=== PATIENT | female | born 1990 | race Caucasian/White ===

== ENCOUNTER 2018-09-24 02:20 | Inpatient (IN) ==
[2018-09-24] MEDS ORDERED: OXYTOCIN 30 UNITS/500 ML BAG IV PRN ×4 (03:30→21:06)
[2018-09-24] MEDS ORDERED: LACTATED RINGER'S 1,000 ML IV PRN ×3 (03:30→16:18)
[2018-09-24] MEDS ORDERED: BUTORPHANOL TARTRATE 2 MG/ML VIAL IV PRN (03:31)
[2018-09-24] MEDS: LACTATED RINGER'S 1,000 ML IV SCH ×3 (03:58→16:11)
[2018-09-24 04:00] LABS: Hematocrit (blood only) 36.3 % (37-47); Hemoglobin 12.6 g/dL (12.0-16.0); Mean Corpuscular Volume 79.1 fL (80-100); Mean Platelet Volume 9.4 fL (7.4-10.4); Platelet Count 243 K/uL (130-400); RDW Coefficient of Variation 15.4 % (11.5-14.5); RDW Standard Deviation 44.2 fL (36.4-46.3); Red Blood Count 4.59 M/uL (4.2-5.4); White Blood Count 12.73 K/uL (4.8-10.8)
[2018-09-24 04:01] LABS: Mean Corpuscular Hgb Conc 34.7 g/dL (32-36)
--- NOTE | 2018-09-24 06:35 | Obstetrical Progress Note ---
Date of Service Cx 3-4. EFW 7-8 Start Pitocin September 24, 2018 Results & Data Vital Signs (Past 12 Hours) Vital Signs Temp Pulse Resp BP 09/24/18 02:56 104 H 139/82 09/24/18 02:55 97.9 F 24 09/24/18 02:49 97.9 F 104 H 24 139/82
--- NOTE | 2018-09-24 08:22 | Anesthesiology Consultation ---
Date of Service September 24, 2018 Assessment & Plan Chart Review Chart Review: Patient NOT seen in Pre Admission Testing and Acceptable Risk for Labor Epidural Consults Requested none ASA ASA2 Proposed Anesthesia Anesthesia Type: Labor Epidural Risk / Benefits Reviewed With: PT / POA / Parent / Guardian, Accepts Plan and Informed Consent Obtained History Height/Weight Height: 1.63 m Weight: 113 kg Allergies Allergy/AdvReac Type Severity Reaction Status Date / Time latex Allergy Mild Rash Verified 09/23/18 20:06 Medications Home Medications Medication Instructions Recorded Confirmed Last Taken Vitamin 1 tab PO DAILY 09/23/18 09/24/18 09/23/18 23:00 1 Vitamin B-6 1 tab PO DAILY 09/23/18 09/24/18 09/23/18 23:30 Active Medications Generic Name Dose Route Start Last Admin Trade Name Freq PRN Reason Stop Dose Admin Lactated Ringer's 1,000 mls @ 125 mls/hr 09/24/18 03:30 09/24/18 08:00 Lr IV 09/26/18 03:29 125 mls/hr .Q8H ELLA Infusion Oxytocin 30 units in 500 mls @ 1 mls/hr 09/24/18 06:34 09/24/18 08:07 Pitocin IV 09/26/18 06:33 0.06 units/hr .Q24H PRN 1 mls/hr Labor Induction/Augmentation Administration Protocol 0.06 UNITS/HR NPO Date Last Intake of Fluids: 09/24/18 Time Last Intake of Fluids: 08:00 Date Last Intake of Solids: 09/23/18 Time Last Intake of Solids: 23:00 Past Medical History Medical History Anxiety and depression stopped taking Prozac GERD (gastroesophageal reflux disease) Mild heartburn 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 Exercise / Class Metabolic Activity II 4-5 Yardwork/Stairs/Walk up hill Past Surgical History Denies previous surgical history Past Anesthesia History No Family Hx of Anesthesia Complications Denies previous anesthesia history History of PONV No Hx of PONV (No h/o previous anesthesia) and Hx of Motion Sickness (On occasion) Social History Smoking Status: Never smoker Do You Dip or Chew Tobacco: No Hx Alcohol Use: Yes alcohol intake frequency: holidays/special occasions only (Not during ) Hx Substance Use: No Review of Systems Hematologic / Lymphatic: no easy bleeding Denies having h/o major bleeding disorder Denies taking any anticoagulant Physical Exam Vital Signs Last Vital Signs Temp 36.8 C 09/24/18 07:04 Pulse 110 H 09/24/18 08:04 Resp 20 09/24/18 08:03 BP 143/87 H 09/24/18 08:04 ENMT Mouth: no TMJ abnormality and no TMJ clicking Thyromental Distance: > or= 3.5 Finger Breadths Mallampati Class: II Mouth / Teeth: 1. Chipped Neck normal visual inspection; neck extension not limited Respiratory Auscultation: lungs clear to auscultation bilaterally Cardiovascular Rate/Rhythm: regular rate and regular rhythm Psychiatric Orientation: alert and oriented x 3 Testing Laboratory Results 09/24/18 03:49
--- NOTE | 2018-09-24 09:18 | Labor Progress Brief Note ---
Date of Service September 24, 2018 Subjective Patient feeling contractions, does not wish epidural yet. Assessment & Plan (1) Post term over 40 weeks: IOL continues, s/p Ellis and now with pitocin. Plan re-attempt AROM after patient elects epidural, or in several hours. GBS neg. Rh pos. Labs and vitals reviewed. Physical Exam Physical Exam: T Cat 1 [place] irregular Pit @ 3 Cvx 3/50/-2 well applied, vtx palpable. Attempt to AROM but without obvious success / LOF. Patient having difficulty tolerating exam due to discomfort, pulling legs together. Results & Data Vital Signs (Past 12 Hours) Vital Signs Temp Pulse Resp BP 09/24/18 09:11 98 H 141/84 H 09/24/18 08:24 36.8 C 20 09/24/18 08:04 110 H 143/87 H 09/24/18 08:03 20 09/24/18 07:05 101 H 131/84 09/24/18 07:04 36.8 C 09/24/18 06:41 36.8 C 108 H 24 122/74 09/24/18 02:56 104 H 139/82 09/24/18 02:55 36.6 C 24 09/24/18 02:49 36.6 C 104 H 24 139/82 Laboratory Results Laboratory Results - last 24 hr 09/24/18 03:49 WBC 12.73 H RBC 4.59 Hgb 12.6 Hct 36.3 L MCV 79.1 L MCH 27.5 MCHC 34.7 RDW Std Deviation 44.2 RDW Coeff of Brian 15.4 H Plt Count 243 MPV 9.4
--- NOTE | 2018-09-24 12:00 | Labor Progress Brief Note ---
Date of Service September 24, 2018 Subjective Care discussed with Abe Muñoz RN. Patient tolerating ctx, does not want epidural yet. Nichelle also tells me she thinks fluid is actually clear, not light mec as previously suspected. Assessment & Plan (1) Post term over 40 weeks: Continue to titrate pitocin to Q2min ctx. Epidural on request. AROM appears to have been successful earlier this morning, or else followed by SROM sometime after. In any case pt now ruptured and fluid clear per RN. Will reassess cervix in a few hours or after epidural. Physical Exam Physical Exam: FHT Cat 1 [place] Q3min Pit @ 11 Results & Data Vital Signs (Past 12 Hours) Vital Signs Temp Pulse Resp BP 09/24/18 11:30 37.0 C 09/24/18 11:10 108 H 145/90 H 09/24/18 10:11 110 H 20 128/63 09/24/18 09:11 98 H 20 141/84 H 09/24/18 08:24 36.8 C 20 09/24/18 08:04 110 H 20 143/87 H 09/24/18 08:03 20 09/24/18 07:05 101 H 20 131/84 09/24/18 07:04 36.8 C 20 09/24/18 06:41 36.8 C 108 H 24 122/74 09/24/18 02:56 104 H 139/82 09/24/18 02:55 36.6 C 24 09/24/18 02:49 36.6 C 104 H 24 139/82
--- NOTE | 2018-09-24 15:20 | Labor Progress Brief Note ---
Date of Service September 24, 2018 Subjective Patient on birthing ball when I entered room. Able to reposition herself into bed for exam. Assessment & Plan (1) Post term over 40 weeks: Induction to continue. Pit @ Q2min and patient uncomfortable, but no cervical change. Discussed options with patient and family. Agreeable to placement of IUPC and FSE. Both placed without difficulty. Tracing of FHR became category 2; repositioning, bolus, and checking FHR with external monitor all tried. Appears to have truly developed some late decels at first but these did resolve back to a baseline of 135 with semi-marin position and FSE is working accurately. Fluid definitely light meconium stained at this point. Patient now requesting epidural, will give after bolus complete. Then titrate pitocin to MVU 200. Present on Admission?: Yes Physical Exam Physical Exam: FHT Cat 1 [place] Q2q Pit @ 19 Cvx unchanged Results & Data Vital Signs (Past 12 Hours) Vital Signs Temp Pulse Resp BP 09/24/18 15:10 108 H 125/72 09/24/18 14:18 114 H 164/78 H 09/24/18 14:17 109 H 180/84 H 09/24/18 13:30 36.8 C 09/24/18 13:10 104 H 141/81 H 09/24/18 12:10 106 H 20 139/79 09/24/18 11:30 37.0 C 09/24/18 11:10 108 H 18 145/90 H 09/24/18 10:11 110 H 20 128/63 09/24/18 09:11 98 H 20 141/84 H 09/24/18 08:24 36.8 C 20 09/24/18 08:04 110 H 20 143/87 H 09/24/18 08:03 20 09/24/18 07:05 101 H 20 131/84 09/24/18 07:04 36.8 C 20 09/24/18 06:41 36.8 C 108 H 24 122/74
[2018-09-24] MEDS ORDERED: BUPIVACAINE 0.25% 30 ML VIAL ONE (15:31)
[2018-09-24] MEDS ORDERED: fentaNYL citrate 100 MCG/2 ML VIAL ONE ×2 (15:31→19:24)
[2018-09-24] MEDS ORDERED: ePHEDrine sulfate 50 MG/ML AMP ONE ×2 (15:31→20:25)
[2018-09-24] MEDS ORDERED: fentaNYL 2MCG/ML ROPIV 1.25MG/ML 100 ML BAG EPI ONE (15:32)
--- NOTE | 2018-09-24 16:12 | Labor Progress Brief Note ---
Date of Service September 24, 2018 Subjective Getting comfortable, just received epidural. Assessment & Plan (1) Post term over 40 weeks: Titrate to 200-250 MVU, reassess cervix after adequate for at least 2 hours. Occasional variables likely d/t epidural just received; continue observation. Reassuring variability and accels present. Present on Admission?: Yes Physical Exam Physical Exam: Pit @ 19 [place] Q2 FHT with baseline 140, +acc, + occ variables, mod yonny. Cvx deferred Results & Data Vital Signs (Past 12 Hours) Vital Signs Temp Pulse Resp BP Pulse Ox 09/24/18 16:09 126 H 110/69 09/24/18 16:08 129 H 99 09/24/18 16:03 118 H 99 09/24/18 15:58 113 H 100 09/24/18 15:53 120 H 100 09/24/18 15:10 108 H 125/72 09/24/18 14:18 114 H 164/78 H 09/24/18 14:17 109 H 180/84 H 09/24/18 13:30 36.8 C 09/24/18 13:10 104 H 141/81 H 09/24/18 12:10 106 H 20 139/79 09/24/18 11:30 37.0 C 09/24/18 11:10 108 H 18 145/90 H 09/24/18 10:11 110 H 20 128/63 09/24/18 09:11 98 H 20 141/84 H 09/24/18 08:24 36.8 C 20 09/24/18 08:04 110 H 20 143/87 H 09/24/18 08:03 20 09/24/18 07:05 101 H 20 131/84 09/24/18 07:04 36.8 C 20 09/24/18 06:41 36.8 C 108 H 24 122/74
[2018-09-24] MEDS ORDERED: NALBUPHINE HCL INJ 10 MG/ML AMP IV PRN ×2 (16:18→20:40)
[2018-09-24] MEDS ORDERED: ONDANSETRON INJ 2 MG/ML 2 ML VIAL IV PRN ×3 (16:18→20:40)
[2018-09-24] MEDS ORDERED: DiphenhydrAMINE HCL 50 MG/ML VIAL IV PRN ×2 (16:18→20:40)
[2018-09-24] MEDS ORDERED: PROMETHAZINE HCL 12.5 MG in SODIUM CHLORIDE 0.9% 50 ML IV PRN ×3 (16:18→20:40)
[2018-09-24] MEDS ORDERED: NALOXONE HCL 1 MG in SODIUM CHLORIDE 0.9% 1000ML 1,000 ML IV PRN ×2 (16:18→20:40)
[2018-09-24] MEDS ORDERED: fentaNYL 2MCG/ML ROPIV 1.25MG/ML 100 ML BAG EPI PRN (16:18)
[2018-09-24] MEDS ORDERED: ePHEDrine sulfate 50 MG/ML AMP IV PRN ×3 (16:18→20:40)
[2018-09-24] MEDS ORDERED: NALOXONE HCL 0.4 MG/1 ML VIAL/CARP IV PRN ×2 (16:18→20:40)
--- NOTE | 2018-09-24 17:14 | Labor Progress Brief Note ---
Date of Service September 24, 2018 Subjective Came to see patient with intent of checking cervix; however, per RN in room, patient only just now had pitocin increased to 21. Not likely to be any cervical change as MVU not yet adequate, so exam deferred. Patient is now comfortable with epidural. Assessment & Plan (1) Post term over 40 weeks: Titrate to adequate MVU then reassess for cervical change. status currently reassuring. Present on Admission?: Yes Physical Exam Physical Exam: FHT Cat 1 [place] Q1.5-2 MVU 160-190 per RN calculations Results & Data Vital Signs (Past 12 Hours) Vital Signs Temp Pulse Resp BP Pulse Ox 09/24/18 17:08 113 H 100 09/24/18 17:06 111 H 129/63 09/24/18 17:03 113 H 100 09/24/18 17:01 118 H 138/65 09/24/18 16:58 111 H 100 09/24/18 16:57 108 H 137/64 09/24/18 16:53 110 H 100 09/24/18 16:52 110 H 132/60 09/24/18 16:48 109 H 99 09/24/18 16:46 115 H 136/61 09/24/18 16:43 108 H 99 09/24/18 16:41 113 H 136/66 09/24/18 16:38 106 H 100 09/24/18 16:36 113 H 134/68 09/24/18 16:33 114 H 100 09/24/18 16:32 113 H 136/67 09/24/18 16:28 118 H 100 09/24/18 16:26 116 H 137/65 09/24/18 16:23 120 H 99 09/24/18 16:20 122 H 141/67 H 09/24/18 16:18 113 H 127/66 100 09/24/18 16:16 117 H 118/67 09/24/18 16:14 116 H 113/67 09/24/18 16:13 119 H 99 09/24/18 16:12 114 H 108/63 09/24/18 16:10 126 H 102/64 09/24/18 16:09 126 H 110/69 09/24/18 16:08 129 H 99 09/24/18 16:03 118 H 99 09/24/18 15:58 113 H 100 05/07/19 15:53 120 H 100 09/24/18 15:10 108 H 125/72 09/24/18 14:18 114 H 164/78 H 09/24/18 14:17 109 H 180/84 H 09/24/18 13:30 36.8 C 09/24/18 13:10 104 H 141/81 H 09/24/18 12:10 106 H 20 139/79 09/24/18 11:30 37.0 C 09/24/18 11:10 108 H 18 145/90 H 09/24/18 10:11 110 H 20 128/63 09/24/18 09:11 98 H 20 141/84 H 09/24/18 08:24 36.8 C 20 09/24/18 08:04 110 H 20 143/87 H 09/24/18 08:03 20 09/24/18 07:05 101 H 20 131/84 09/24/18 07:04 36.8 C 20 09/24/18 06:41 36.8 C 108 H 24 122/74
--- NOTE | 2018-09-24 19:21 | Labor Progress Brief Note ---
Date of Service September 24, 2018 Subjective Comfortable with epidural. Assessment & Plan (1) Post term over 40 weeks: Discussed with patient my concerns for CPD. She has a total lack of progress despite induction process nearly 24 hours now, including about 12 hours of pitocin reaching significant doses and reaching adequate MVU for past hour. Her contraction pattern is deteriorating into couplets and groups. FHT have been intermittently Cat 2, with meconium, and I lack confidence that the lengthy process yet to come will be well tolerated by the fetus. Although I do not feel we have to abandon attempt to induce at this time, I have discussed with the patient the risks and benefits both of continuing IOL and of changing to C/Section. The patient feels she would prefer to proceed to at this time rather than continue to attempt induction. Consent process done. Present on Admission?: Yes Physical Exam Physical Exam: FHT Cat 2 with mod yonny, accels, normal baseline, occasional variables. [place] Q1-6 with dysfunctional pattern Pit @ 23 MVU adequate Cvx unchanged; still 3cm/50/-2 Results & Data Vital Signs (Past 12 Hours) Vital Signs Temp Pulse Resp BP Pulse Ox 09/24/18 19:13 132 H 100 09/24/18 19:08 129 H 171/96 H 100 09/24/18 19:03 119 H 97 09/24/18 18:58 119 H 100 09/24/18 18:53 121 H 127/74 93 09/24/18 18:48 112 H 100 09/24/18 18:43 111 H 100 09/24/18 18:38 36.9 C 111 H 20 100 09/24/18 18:37 114 H 177/82 H 09/24/18 18:33 112 H 99 09/24/18 18:28 99 H 99 09/24/18 18:23 107 H 144/79 H 99 09/24/18 18:18 99 H 20 99 09/24/18 18:13 98 H 99 09/24/18 18:08 106 H 99 09/24/18 18:07 113 H 149/83 H 09/24/18 18:03 97 H 98 09/24/18 17:58 108 H 98 09/24/18 17:54 108 H 139/81 09/24/18 17:53 110 H 99 09/24/18 17:48 108 H 100 09/24/18 17:45 36.9 C 20 09/24/18 17:43 106 H 99 05 17:38 109 H 100 05 17:37 109 H 134/60 09/24/18 17:33 105 H 100 09/24/18 17:28 108 H 100 09/24/18 17:23 112 H 136/64 99 09/24/18 17:18 114 H 100 05 17:13 114 H 20 100 09/24/18 17:08 113 H 100 09/24/18 17:06 111 H 129/63 09/24/18 17:03 113 H 100 09/24/18 17:01 118 H 138/65 09/24/18 16:58 111 H 100 09/24/18 16:57 108 H 20 137/64 09/24/18 16:53 110 H 100 09/24/18 16:52 110 H 132/60 09/24/18 16:48 109 H 99 09/24/18 16:46 115 H 136/61 09/24/18 16:43 108 H 99 09/24/18 16:41 113 H 20 136/66 09/24/18 16:38 106 H 100 09/24/18 16:36 113 H 134/68 09/24/18 16:33 114 H 100 09/24/18 16:32 113 H 136/67 09/24/18 16:28 118 H 100 09/24/18 16:26 116 H 20 137/65 09/24/18 16:23 120 H 99 09/24/18 16:20 122 H 141/67 H 09/24/18 16:18 113 H 127/66 100 09/24/18 16:16 117 H 118/67 09/24/18 16:14 116 H 113/67 09/24/18 16:13 119 H 99 09/24/18 16:12 114 H 108/63 09/24/18 16:10 126 H 102/64 09/24/18 16:09 126 H 20 110/69 09/24/18 16:08 129 H 99 09/24/18 16:03 118 H 99 09/24/18 15:58 113 H 100 05 15:53 120 H 100 09/24/18 15:20 36.9 C 20 09/24/18 15:10 108 H 125/72 09/24/18 14:18 114 H 164/78 H 09/24/18 14:17 109 H 180/84 H 09/24/18 13:30 36.8 C 09/24/18 13:10 104 H 141/81 H 09/24/18 12:10 106 H 20 139/79 09/24/18 11:30 37.0 C 09/24/18 11:10 108 H 18 145/90 H 09/24/18 10:11 110 H 20 128/63 09/24/18 09:11 98 H 20 141/84 H 09/24/18 08:24 36.8 C 20 09/24/18 08:04 110 H 20 143/87 H 09/24/18 08:03 20
[2018-09-24] MEDS ORDERED: OXYTOCIN 10 UNITS/ML VIAL ONE ×3 (19:25)
[2018-09-24] MEDS ORDERED: MoRPHine SULFATE PF 1 MG/ML 10 ML AMP/VIAL ONE (19:25)
[2018-09-24] MEDS ORDERED: CEFAZOLIN 3000MG 65 ML IV SCH (19:30)
[2018-09-24] MEDS ORDERED: ATROPINE SULFATE 0.1 MG/ML 10ML SYR IV PRN (19:30)
[2018-09-24] MEDS ORDERED: HYDROmorphone INJ 1 MG/ML SYRINGE IV PRN (19:30)
[2018-09-24] MEDS ORDERED: fentaNYL citrate 100 MCG/2 ML VIAL IV PRN (19:30)
[2018-09-24] MEDS ORDERED: CITRIC ACID/SODIUM CITRATE 15 ML UDC PO SCH (19:30)
--- NOTE | 2018-09-24 19:36 | Anesthesiology Consultation ---
Date of Service September 24, 2018 Assessment & Plan Chart Review Chart Review: Acceptable Risk for Surgery and Patient NOT seen in Pre Admission Testing Consults Requested none ASA [id number] Proposed Anesthesia Anesthesia Type: MAC Epidural Risk / Benefits Reviewed With: PT / POA / Parent / Guardian, Accepts Plan and Informed Consent Obtained History Height/Weight Height: 1.63 m Weight: 113 kg Allergies Allergy/AdvReac Type Severity Reaction Status Date / Time latex Allergy Mild Rash Verified 09/23/18 20:06 Medications Home Medications Medication Instructions Recorded Confirmed Last Taken Vitamin 1 tab PO DAILY 09/23/18 09/24/18 09/23/18 23:00 1 Vitamin B-6 1 tab PO DAILY 09/23/18 09/24/18 09/23/18 23:30 Active Medications Generic Name Dose Route Start Last Admin Trade Name Freq PRN Reason Stop Dose Admin Lactated Ringer's 1,000 mls @ 125 mls/hr 09/24/18 03:30 09/24/18 18:34 Lr IV 09/26/18 03:29 125 mls/hr .Q8H ELLA Infusion Oxytocin 30 units in 500 mls @ 25 mls/hr 09/24/18 16:14 09/24/18 18:40 Pitocin IV 10/24/18 16:13 1.5 units/hr .Q20H PRN 25 mls/hr Labor induction Titration Protocol 1.5 UNITS/HR Ropivacaine 100 ml 09/24/18 16:18 09/24/18 19:08 Epidural (L&D) EPI 09/25/18 16:17 10 ml PRN PRN Administration Pain R/T Labor Protocol NPO Date Last Intake of Fluids: 09/24/18 Time Last Intake of Fluids: 02:00 Date Last Intake of Solids: 09/23/18 Time Last Intake of Solids: 23:00 Past Medical History Medical History Anxiety and depression stopped taking Prozac GERD (gastroesophageal reflux disease) Mild heartburn 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 Exercise / Class Metabolic Activity II 4-5 Yardwork/Stairs/Walk up hill Past Anesthesia History No Hx of Anesthesia Complications and No Family Hx of Anesthesia Complications Denies previous anesthesia history History of PONV No Hx of PONV and Hx of Motion Sickness (On occasion) Social History Smoking Status: Never smoker Do You Dip or Chew Tobacco: No Hx Alcohol Use: Yes alcohol intake frequency: holidays/special occasions only (Not during ) Hx Substance Use: No Review of Systems Respiratory: no dyspnea Cardiovascular: no chest pain Gastrointestinal: no nausea and no vomiting Physical Exam Vital Signs Last Vital Signs Temp 36.9 C 09/24/18 18:38 Pulse 134 H 09/24/18 19:28 Resp 20 09/24/18 18:38 BP 152/96 H 09/24/18 19:23 Pulse Ox 100 09/24/18 19:28 ENMT Mouth: no TMJ abnormality and no TMJ clicking Thyromental Distance: > or= 3.5 Finger Breadths Mallampati Class: II Neck normal visual inspection; neck extension not limited Respiratory Auscultation: lungs clear to auscultation bilaterally Cardiovascular Rate/Rhythm: regular rate and regular rhythm Psychiatric Orientation: alert and oriented x 3 Testing Laboratory Results 09/24/18 03:49
[2018-09-24] MEDS ORDERED: ONDANSETRON INJ 2 MG/ML 2 ML VIAL ONE (20:11)
[2018-09-24] MEDS ORDERED: CARBOPROST TROMETHAMINE 250 MCG/ML AMPUL ONE (20:32)
[2018-09-24] MEDS ORDERED: PHENYLEPHRINE HCL 10 MG/ML VIAL ONE (20:32)
[2018-09-24] MEDS ORDERED: LACTATED RINGER'S 500 ML IV PRN (20:40)
[2018-09-24] MEDS ORDERED: NALOXONE HCL 0.08 MG in SYRINGE 1.8 ML IV PRN (20:40)
[2018-09-24] MEDS ORDERED: MEPERIDINE HCL 25 MG/ML CARP IV PRN (20:40)
[2018-09-24] MEDS ORDERED: MoRPHine SULFATE 2 MG/ML CARP IV PRN (20:40)
[2018-09-24] MEDS ORDERED: MoRPHine SULFATE PF 1 MG/ML 10 ML AMP/VIAL EPI ONE (20:40)
[2018-09-24] MEDS ORDERED: SODIUM CHLORIDE 0.9% 1000ML 1,000 ML IV SCH (20:45)
[2018-09-24] MEDS ORDERED: NO NARCOTICS OR SEDATIVES SCH (20:45)
--- NOTE | 2018-09-24 20:55 | Operative Report ---
Post Operative Report Pre & Post Diagnosis Operation Date: 09/24/18 19:30 Pre-Op Diagnosis: 1.) SIUP @ Postdates 2.) Induction of labor 3.) Failure to progress 4.) Maternal obesity Post-Op Diagnosis: Same Procedure Operation Date: 09/24/18 19:30 Actual Procedures p Primary Section with a low transverse incision for the of a viable male child.(Bilateral) - Kathleen Amaya MD Surgeon Kathleen Amaya MD Director Of Scientific Research RN Estimated Blood Loss 800 Findings Consistent with Post-Op Diagnosis Specimens Cord blood, placenta exam Anesthesia Type L&D Only Epidural Exists Complications none Disposition Accompanied Patient To Recovery: Yes Disposition: L&D Description of Procedure The patient was brought to the operating room and placed on the table in the supine position with a leftward tilt, then prepped and draped in standard sterile fashion. A hard time out was taken prior to proceeding. A pfannensteil incision was created sharply and carried down to the fascia using bovie electrocautery. The fascia was nicked and then extended using rebollar scissors. The edges of the fascia were grasped with Low clamps and elevated, then sharply and bluntly dissected off the underlying rectus. The midline of the r ectus was identified and bluntly . The peritoneum was bluntly entered, and this entry was extended using pressure from the surgeon's hands. Attempt was made x2 to place an Jaya retractor, however it sprung out of the abdominal incision both times and was abandoned. The bladder retractor was placed and the lower uterine segment was examined and found to be well developed. A bladder f lap was created and the retractor was replaced behind this flap to protect the bladder. A transverse lower uterine incision was then created, with final entry to the uterine cavity made in a blunt manner with the surgeon's finger. Meconium stained amniotic fluid was encountered. The head was elevated to the incision and delivered using mild fundal pressure. The cord was doubly clamped and cut, respiratory effort was noted during cord clamping, then the infant was taken to the warmer for grocery store bagger care. The placenta was manually extracted, and the uterus was gently exteriorized from the maternal abdomen. The cavity was cleared of clot and debris using a dry lap sponge. Some stubborn pieces of meconium-stained membrane were removed via brief Papo curettage. The angles of the incision were identified with allis clamps, and the hysterotomy was then repaired in running locked fashion using 0-vicryl suture, followed by a second imbricating layer. The tubes and ovaries were examined and found to be normal bilaterally. The posterior gutter was irrigated and cleared of clot and debris. The uterus was then gently re-internalized to the abdomen. Lateral gutters were cleared of clot and debris using a damp lap sponge, and a final exam of the hysterotomy revealed good hemostasis. The rectus muscles were allowed to reapproximate naturally. The angle of the fascia was grasped with a Low clamp and the fascia was then repaired in running non-locked fashion with 1-vicryl suture. At the completion of repair, the fascia was examined and found to be free of any defect. The subcutaneous tissue was copiously irrigated and then reapproximated using 3-0 chromic in two layers. The skin was then closed using surgical nithya and a clean Telfa/ABD dressing was applied with medipore tape. The kc was noted to be draining clear yellow urine as the patient was transferred back to her recovery room. I attest to the content of the Intraoperative Record and any orders documented therein. Any exceptions are noted below.
[2018-09-24] MEDS ORDERED: MEASLES, MUMPS & RUBELLA VIRUS VIAL SQ ONE (21:04)
[2018-09-24] MEDS ORDERED: SENNA 8.6 MG TAB PO PRN (21:04)
[2018-09-24] MEDS ORDERED: BENZOCAINE 20% AER SPR 82.5 GM CAN EXT PRN (21:04)
[2018-09-24] MEDS ORDERED: HYDROCORTISONE ACETATE 25 MG SUPP PR PRN (21:04)
[2018-09-24] MEDS ORDERED: DIPHTHERIA/TETANUS/PERTUSSIS 0.5 ML SYR/VIAL IM ONE (21:04)
[2018-09-24] MEDS ORDERED: SUPERCREAM 0.870% 15 GM JAR EXT PRN (21:04)
[2018-09-24] MEDS ORDERED: LACTATED RINGER'S 1,000 ML IV SCH (21:04)
[2018-09-24] MEDS ORDERED: MAGNESIUM HYDROXIDE SUSP 30 ML UDC PO PRN (21:04)
[2018-09-24] MEDS ORDERED: OXYTOCIN 30 UNITS/500 ML BAG IV SCH (21:15)
--- NOTE | 2018-09-24 23:45 | Anesthesiology Progress Note ---
Date of Service September 24, 2018 Anesthesia Post Procedure Vital Signs Vital Signs: Temp Pulse Resp BP Pulse Ox 09/24/18 23:02 111 H 99 09/24/18 23:00 36.4 C L 110 H 20 142/77 H 09/24/18 22:57 108 H 97 09/24/18 22:52 111 H 97 09/24/18 22:47 106 H 99 09/24/18 22:42 109 H 99 09/24/18 22:37 107 H 99 09/24/18 22:32 103 H 100 09/24/18 22:31 108 H 145/70 H 09/24/18 22:30 106 H 18 99 09/24/18 22:27 103 H 99 09/24/18 22:22 107 H 99 09/24/18 22:17 106 H 99 09/24/18 22:12 104 H 98 09/24/18 22:07 105 H 99 09/24/18 22:02 109 H 98 09/24/18 22:00 106 H 20 136/63 09/24/18 21:57 108 H 98 09/24/18 21:52 113 H 98 09/24/18 21:51 111 H 130/83 09/24/18 21:50 18 09/24/18 21:47 109 H 98 09/24/18 21:42 112 H 97 09/24/18 21:40 107 H 18 119/56 L 09/24/18 21:37 105 H 96 09/24/18 21:32 108 H 97 09/24/18 21:30 109 H 16 116/53 L 09/24/18 21:27 112 H 98 09/24/18 21:22 109 H 97 09/24/18 21:20 110 H 18 113/57 L 09/24/18 21:17 108 H 97 09/24/18 21:12 103 H 98 09/24/18 21:11 105 H 18 119/57 L 09/24/18 21:10 16 09/24/18 21:07 110 H 98 09/24/18 21:03 107 H 94 09/24/18 21:02 107 H 96 09/24/18 21:00 37.2 C 18 09/24/18 20:58 110 H 16 131/58 L 94 09/24/18 20:57 108 H 94 09/24/18 19:48 128 H 147/84 H 100 09/24/18 19:47 133 H 174/94 H 09/24/18 19:43 132 H 100 09/24/18 19:38 131 H 158/94 H 99 09/24/18 19:33 132 H 99 09/24/18 19:28 134 H 100 09/24/18 19:23 136 H 152/96 H 100 09/24/18 19:18 130 H 100 09/24/18 19:13 132 H 100 09/24/18 19:08 129 H 171/96 H 100 09/24/18 19:03 119 H 97 09/24/18 19:00 37.0 C 20 09/24/18 18:58 119 H 100 09/24/18 18:53 121 H 127/74 93 09/24/18 18:48 112 H 100 09/24/18 18:43 111 H 100 09/24/18 18:38 36.9 C 111 H 20 100 09/24/18 18:37 114 H 177/82 H 09/24/18 18:33 112 H 99 09/24/18 18:28 99 H 99 09/24/18 18:23 107 H 144/79 H 99 09/24/18 18:18 99 H 20 99 09/24/18 18:13 98 H 99 09/24/18 18:08 106 H 99 09/24/18 18:07 113 H 149/83 H 09/24/18 18:03 97 H 98 09/24/18 17:58 108 H 98 09/24/18 17:54 108 H 139/81 09/24/18 17:53 110 H 99 09/24/18 17:48 108 H 100 09/24/18 17:45 36.9 C 20 09/24/18 17:43 106 H 99 09/24/18 17:38 109 H 100 09/24/18 17:37 109 H 134/60 09/24/18 17:33 105 H 100 09/24/18 17:28 108 H 100 09/24/18 17:23 112 H 136/64 99 09/24/18 17:18 114 H 100 09/24/18 17:13 114 H 20 100 09/24/18 17:08 113 H 100 09/24/18 17:06 111 H 129/63 09/24/18 17:03 113 H 100 09/24/18 17:01 118 H 138/65 09/24/18 16:58 111 H 100 09/24/18 16:57 108 H 20 137/64 09/24/18 16:53 110 H 100 09/24/18 16:52 110 H 132/60 09/24/18 16:48 109 H 99 09/24/18 16:46 115 H 136/61 09/24/18 16:43 108 H 99 09/24/18 16:41 113 H 20 136/66 09/24/18 16:38 106 H 100 09/24/18 16:36 113 H 134/68 09/24/18 16:33 114 H 100 09/24/18 16:32 113 H 136/67 09/24/18 16:28 118 H 100 09/24/18 16:26 116 H 20 137/65 09/24/18 16:23 120 H 99 09/24/18 16:20 122 H 141/67 H 09/24/18 16:18 113 H 127/66 100 09/24/18 16:16 117 H 118/67 09/24/18 16:14 116 H 113/67 09/24/18 16:13 119 H 99 09/24/18 16:12 114 H 108/63 09/24/18 16:10 126 H 102/64 09/24/18 16:09 126 H 20 110/69 09/24/18 16:08 129 H 99 09/24/18 16:03 118 H 99 09/24/18 15:58 113 H 100 09/24/18 15:53 120 H 100 09/24/18 15:20 36.9 C 20 09/24/18 15:10 108 H 125/72 09/24/18 14:18 114 H 164/78 H 09/24/18 14:17 109 H 180/84 H 09/24/18 13:30 36.8 C 09/24/18 13:10 104 H 141/81 H 09/24/18 12:10 106 H 20 139/79 09/24/18 11:30 37.0 C 09/24/18 11:10 108 H 18 145/90 H 09/24/18 10:11 110 H 20 128/63 09/24/18 09:11 98 H 20 141/84 H 05/07/19 08:24 36.8 C 20 09/24/18 08:04 110 H 20 143/87 H 09/24/18 08:03 20 09/24/18 07:05 101 H 20 131/84 09/24/18 07:04 36.8 C 20 09/24/18 06:41 36.8 C 108 H 24 122/74 09/24/18 02:56 104 H 139/82 09/24/18 02:55 36.6 C 24 09/24/18 02:49 36.6 C 104 H 24 139/82 Pain Intensity Bilateral Abdomen: Pain Intensity: 4 Transfer of Care Handoff Completed per policy Notes Mental Status: alert / awake / arousable Patient Amnestic to Procedure: Yes Nausea / Vomiting: adequately controlled Pain: adequately controlled Airway Patency, RR, SpO2: stable & adequate BP & HR: stable & adequate Neuraxial Anesthesia: was administered and sensory block is resolving Anesthetic Complications: no major complications apparent
[2018-09-24] MEDS: SIMETHICONE 80 MG CHEW PO SCH (23:49)
[2018-09-24] MEDS: DOCUSATE SODIUM 100 MG CAP PO SCH (23:49)
[2018-09-25] MEDS: KETOROLAC 30 MG/ML VIAL IV PRN ×2 (00:22→12:51)
[2018-09-25 07:11] LABS: Basophils # (auto) 0.01 K/uL (0-0.2); Basophils % (auto) 0.1 %; Hematocrit (blood only) 29.4 % (37-47); Hemoglobin 10.2 g/dL (12.0-16.0); Immature Granulocytes # (auto) 0.04 K/uL (0.00-0.02); Immature Granulocytes % (auto) 0.3 %; Lymphocytes # (auto) 1.77 K/uL (1.2-3.4); Lymphocytes % (auto) 14.1 %; Mean Corpuscular Hgb Conc 34.7 g/dL (32-36); Mean Corpuscular Volume 80.3 fL (80-100); Mean Platelet Volume 9.5 fL (7.4-10.4); Monocytes # (auto) 1.17 K/uL (0.11-0.59); Monocytes % (auto) 9.3 %; Neutrophils # (auto) 9.57 K/uL (1.4-6.5); Neutrophils % (auto) 76.2 %; Platelet Count 160 K/uL (130-400); RDW Coefficient of Variation 15.6 % (11.5-14.5); RDW Standard Deviation 45.4 fL (36.4-46.3); Red Blood Count 3.66 M/uL (4.2-5.4); White Blood Count 12.56 K/uL (4.8-10.8)
--- NOTE | 2018-09-25 07:15 | Obstetrical Progress Note ---
Date of Service September 25, 2018 Assessment & Plan (1) S/P : 28yo pod1 s/p -Vital signs WNL bp 135/82 T36.8 -Hemoglobin was 12.6 on admission. no si/sx of anemia. -Pt is doing clinically well -Continue to encourage ambulation as tolerated, Monitor and control pain with Motrin, toradol, oxycodone q4h prn. -Advanced diet to reg ob continue as tolerated -plan is to breast feed -routine post op care -treat itchiness with Benadryl prn, expect itchiness to improve as narcotics are metabolized Supervising Physician Co-Signing Physician Notes I have reviewed the resident's note and examined the patient myself, and agree with the note above. Subjective Patient laying in bed this morning in no acute distress, reports itchiness overnight. Patient has been recovering well s/p . She has regained feeling in her leg, reports no calf pain, no ambulation yet, kc still in place adequate uop, +ve flatus, -ve bm. For TOV today. First meal will be breakfast this morning. All questions answered, no acute concerns. Physical Exam Physical Exam: Constitutional: WD/WN, vitals as above no acute distress Eyes: normal visual key by confrontation Neck: normal visual inspection Respiratory: normal respiratory effort, lungs clear to auscultation Cardiovascular: RRR, no murmur, no edema Heart Sounds: normal S1 and normal S2 Extremities: no calf tenderness Gastrointestinal (Abdomen): Uterus firm and below the umbilicus, surgical site clean dry and intact, no erythema Results & Data Vital Signs (Past 12 Hours) Vital Signs Temp Pulse Pulse Pulse Resp BP BP 09/25/18 06:00 18 09/25/18 05:00 18 09/25/18 04:25 18 09/25/18 03:10 36.8 C 108 H 18 135/82 09/25/18 02:37 18 09/25/18 01:00 18 09/25/18 00:05 36.4 C L 118 H 18 125/84 09/24/18 23:05 36.4 C L 110 H 18 09/24/18 23:02 111 H 09/24/18 23:00 36.4 C L 110 H 20 142/77 H 09/24/18 22:57 108 H 09/24/18 22:52 111 H 09/24/18 22:47 106 H 09/24/18 22:42 109 H 09/24/18 22:37 107 H 09/24/18 22:32 103 H 09/24/18 22:31 108 H 145/70 H 09/24/18 22:30 106 H 18 09/24/18 22:27 103 H 09/24/18 22:22 107 H 09/24/18 22:17 106 H 09/24/18 22:12 104 H 09/24/18 22:07 105 H 09/24/18 22:02 109 H 09/24/18 22:00 106 H 20 136/63 09/24/18 21:57 108 H 09/24/18 21:52 113 H 09/24/18 21:51 111 H 130/83 09/24/18 21:50 18 09/24/18 21:47 109 H 09/24/18 21:42 112 H 09/24/18 21:40 107 H 18 119/56 L 09/24/18 21:37 105 H 09/24/18 21:32 108 H 09/24/18 21:30 109 H 16 116/53 L 09/24/18 21:27 112 H 09/24/18 21:22 109 H 09/24/18 21:20 110 H 18 113/57 L 09/24/18 21:17 108 H 09/24/18 21:12 103 H 09/24/18 21:11 105 H 18 119/57 L 09/24/18 21:10 16 09/24/18 21:07 110 H 09/24/18 21:03 107 H 09/24/18 21:02 107 H 09/24/18 21:00 37.2 C 18 09/24/18 20:58 110 H 16 131/58 L 09/24/18 20:57 108 H 09/24/18 19:48 128 H 147/84 H 09/24/18 19:47 133 H 174/94 H 09/24/18 19:43 132 H 09/24/18 19:38 131 H 158/94 H 09/24/18 19:33 132 H 09/24/18 19:28 134 H 09/24/18 19:23 136 H 152/96 H 09/24/18 19:18 130 H 09/24/18 19:13 132 H 09/24/18 19:08 129 H 171/96 H 09/24/18 19:03 119 H 09/24/18 19:00 37.0 C 20 09/24/18 18:58 119 H 09/24/18 18:53 121 H 127/74 09/24/18 18:48 112 H 09/24/18 18:43 111 H 09/24/18 18:38 36.9 C 111 H 20 09/24/18 18:37 114 H 177/82 H 09/24/18 18:33 112 H 09/24/18 18:28 99 H 09/24/18 18:23 107 H 144/79 H BP Pulse Ox 09/25/18 06:00 97 09/25/18 05:00 98 09/25/18 04:25 97 09/25/18 03:10 100 09/25/18 02:37 97 09/25/18 01:00 97 09/25/18 00:05 96 09/24/18 23:05 142/77 H 97 09/24/18 23:02 99 09/24/18 23:00 09/24/18 22:57 97 09/24/18 22:52 97 09/24/18 22:47 99 09/24/18 22:42 99 09/24/18 22:37 99 09/24/18 22:32 100 09/24/18 22:31 09/24/18 22:30 99 09/24/18 22:27 99 09/24/18 22:22 99 09/24/18 22:17 99 09/24/18 22:12 98 09/24/18 22:07 99 09/24/18 22:02 98 09/24/18 22:00 09/24/18 21:57 98 09/24/18 21:52 98 09/24/18 21:51 09/24/18 21:50 09/24/18 21:47 98 09/24/18 21:42 97 09/24/18 21:40 09/24/18 21:37 96 09/24/18 21:32 97 09/24/18 21:30 09/24/18 21:27 98 09/24/18 21:22 97 09/24/18 21:20 09/24/18 21:17 97 09/24/18 21:12 98 09/24/18 21:11 09/24/18 21:10 09/24/18 21:07 98 09/24/18 21:03 94 09/24/18 21:02 96 09/24/18 21:00 09/24/18 20:58 94 09/24/18 20:57 94 09/24/18 19:48 100 09/24/18 19:47 09/24/18 19:43 100 09/24/18 19:38 99 09/24/18 19:33 99 09/24/18 19:28 100 09/24/18 19:23 100 09/24/18 19:18 100 09/24/18 19:13 100 09/24/18 19:08 100 09/24/18 19:03 97 09/24/18 19:00 09/24/18 18:58 100 09/24/18 18:53 93 09/24/18 18:48 100 09/24/18 18:43 100 09/24/18 18:38 100 09/24/18 18:37 09/24/18 18:33 99 09/24/18 18:28 99 09/24/18 18:23 99 Laboratory Results 09/25/18 Range/Units 06:54 WBC Pending RBC Pending Hgb Pending Hct Pending MCV Pending MCH Pending MCHC Pending Plt Count Pending Medications Administered Current Inpatient Medications Benzocaine (Dermoplast Pain Relieving [place]) 1 appln EXT UD PRN PRN Reason: use on skin as needed Stop: 10/24/18 21:03 Cocaine HCl (Supercream 0.870%) 1 gm EXT UD PRN PRN Reason: hemmorrhoidal inflammation Stop: 10/08/18 21:03 Diphenhydramine HCl (Benadryl) 25 mg IV Q6H PRN PRN Reason: Itching Stop: 09/25/18 16:17 Diphenhydramine HCl (Benadryl) 25 mg IV Q6H PRN PRN Reason: pruritis Stop: 09/25/18 14:40 Last Admin: 09/25/18 02:08 Dose: 25 mg Documented by: Diphenhydramine HCl (Benadryl) 25 mg IV QID PRN PRN Reason: Itching Stop: 10/25/18 14:39 Diphenhydramine HCl (Benadryl Capsule) 25 mg PO QID PRN PRN Reason: Itching Stop: 10/25/18 14:39 Docusate Sodium (Colace) 100 mg PO BID [facility] Stop: 10/24/18 21:44 Last Admin: 09/24/18 23:49 Dose: Not Given Documented by: Ephedrine Sulfate (Ephedrine Sulfate) 10 mg IV Q5M PRN PRN Reason: Hypotension Stop: 09/25/18 16:17 Ephedrine Sulfate (Ephedrine Sulfate) 10 mg IV Q5M PRN PRN Reason: Hypotension Stop: 09/25/18 14:40 Ferrous Sulfate (Feosol) 325 mg PO QAM [facility] Stop: 10/25/18 08:59 Hydrocortisone (Anusol Hc) 25 mg MT BID PRN PRN Reason: Hemorrhoids Stop: 10/24/18 21:03 Lactated Ringer's (Lr) 1,000 mls @ 125 mls/hr IV .Q8H ELLA Stop: 09/26/18 03:29 Last Infusion: 09/24/18 21:12 Dose: Infused Documented by: Oxytocin (Pitocin) 30 units in 500 mls @ 333.333 mls/hr IV .Q1H30M PRN; Protocol PRN Reason: Bleeding Control Stop: 10/24/18 03:29 Last Titration: 09/25/18 02:35 Dose: Infused Documented by: Lactated Ringer's (Lr) 1,000 mls @ 999 mls/hr IV .Q1H1M PRN PRN Reason: Hypotension Stop: 09/25/18 16:17 Naloxone HCl 1 mg/ Sodium (Chloride) 1,002.5 mls @ 50 mls/hr IV .Q20H3M PRN PRN Reason: Nausea And Vomiting Stop: 09/25/18 16:17 Naloxone HCl 1 mg/ Sodium (Chloride) 1,002.5 mls @ 50 mls/hr IV .Q20H3M PRN PRN Reason: itching or nausea Stop: 09/25/18 16:17 Promethazine HCl 12.5 mg/ (Sodium Chloride) 50.5 mls @ 204 mls/hr IV Q6H PRN PRN Reason: Nausea And Vomiting Stop: 09/25/18 16:17 Lactated Ringer's (Lr) 500 mls @ 999 mls/hr IV .Q31M PRN PRN Reason: Hypotension Stop: 09/25/18 14:40 Naloxone HCl 1 mg/ Sodium (Chloride) 1,002.5 mls @ 50 mls/hr IV .Q20H3M PRN PRN Reason: itching or nausea Stop: 09/25/18 14:41 Naloxone HCl 0.08 mg/ Syringe 2 mls @ 1 mls/min IV Q30M PRN; Protocol PRN Reason: Urinary Retention Stop: 09/25/18 14:40 Sodium Chloride (Nss 1000ml) 1,000 mls @ 15 mls/hr IV .Q24H ELLA Stop: 09/25/18 14:40 Naloxone HCl 1 mg/ Sodium (Chloride) 1,002.5 mls @ 50 mls/hr IV .Q20H3M PRN PRN Reason: itching or nausea Stop: 09/25/18 14:40 Promethazine HCl 12.5 mg/ (Sodium Chloride) 50.5 mls @ 204 mls/hr IV Q6H PRN PRN Reason: Nausea And Vomiting Stop: 09/25/18 14:41 Promethazine HCl 25 mg/ Sodium (Chloride) 51 mls @ 204 mls/hr IV Q4H PRN PRN Reason: Nausea And Vomiting Stop: 10/25/18 14:39 Lactated Ringer's (Lr) 1,000 mls @ 125 mls/hr IV .Q8H ELLA Stop: 10/24/18 21:03 Last Infusion: 09/25/18 06:00 Dose: 125 mls/hr Documented by: Oxytocin (Pitocin) 30 units in 500 mls @ 500 mls/hr IV .Q1H PRN; Protocol PRN Reason: Bleeding Control Stop: 10/24/18 21:05 Oxytocin (Pitocin) 30 units in 500 mls @ 0 mls/hr IV .Q0M ELLA; Protocol Stop: 10/24/18 21:14 Ibuprofen (Motrin) 600 mg PO Q4H PRN PRN Reason: Pain Stop: 10/24/18 21:03 Ketorolac Tromethamine (Toradol) 30 mg IV Q6H PRN PRN Reason: Breakthrough Surgical Pain Stop: 09/25/18 14:40 Last Admin: 09/25/18 00:22 Dose: 30 mg Documented by: Ketorolac Tromethamine (Toradol) 30 mg IV Q6H PRN PRN Reason: Pain Stop: 09/30/18 14:39 Magnesium Hydroxide (Milk Of Magnesia) 30 ml PO HS PRN PRN Reason: Constipation Stop: 10/24/18 21:03 Meperidine HCl (Demerol) 25 mg IV Q15M PRN PRN Reason: Breakthrough Surgical Pain Stop: 09/25/18 14:40 Meperidine HCl (Demerol) 50 - 75 mg IV Q4H PRN PRN Reason: Pain Stop: 10/09/18 14:39 Miscellaneous (No Narcotics Or Sedatives) 1 ea N/A UD [facility] Stop: 09/25/18 14:40 Miscellaneous Information (Dc Intraspinal Morphine) 1 ea N/A TODAY@1440 [facility] Stop: 09/25/18 14:41 Morphine Sulfate (Morphine Sulfate) 2 mg IV Q2H PRN PRN Reason: Breakthrough Surgical Pain Stop: 09/25/18 14:40 Nalbuphine HCl (Nubain) 5 mg IV Q10M PRN PRN Reason: itching or nausea Stop: 09/25/18 16:17 Nalbuphine HCl (Nubain) 5 mg IV Q10M PRN PRN Reason: itching or nausea Stop: 09/25/18 14:40 Last Admin: 09/25/18 04:25 Dose: 5 mg Documented by: Naloxone HCl (Narcan) 0.1 mg IV UD PRN PRN Reason: respiratory depression Stop: 09/25/18 16:17 Naloxone HCl (Narcan) 0.1 mg IV UD PRN PRN Reason: Respiratory Depression Stop: 09/25/18 14:40 Ondansetron HCl (Zofran) 4 mg IV Q6H PRN PRN Reason: Nausea And Vomiting Stop: 09/25/18 16:17 Ondansetron HCl (Zofran) 4 mg IV Q6H PRN PRN Reason: Nausea And Vomiting Stop: 09/25/18 14:41 Ondansetron HCl (Zofran) 4 mg IV Q4H PRN PRN Reason: Nausea And Vomiting Stop: 10/25/18 14:39 Oxycodone/Acetaminophen (Percocet 5mg/325mg) 1 - 2 tab PO Q4H PRN PRN Reason: Pain Stop: 10/09/18 14:39 Prenat Multivit/1St Grade Teacher/Iron/Folic Ac ( Vitamin) 1 tab PO QAM [facility] Stop: 10/25/18 08:59 Ropivacaine (Epidural (L&D)) 100 ml EPI PRN PRN; Protocol PRN Reason: Pain R/T Labor Stop: 09/25/18 16:17 Last Admin: 09/24/18 19:08 Dose: 10 ml Documented by: Sennosides (Senokot) 17.2 mg PO HS PRN PRN Reason: Constipation Stop: 10/24/18 21:03 Simethicone (Mylicon) 80 mg PO QID ELLA Stop: 10/24/18 21:44 Last Admin: 09/24/18 23:49 Dose: Not Given Documented by: Resident Activity Tracking Resident Involvement: Resident Care Provided Care Provided: Adult Hospital Medicine
--- NOTE | 2018-09-25 07:35 | Anesthesia Procedure Note ---
Date of Service September 25, 2018 Anesthesia Post Epidural Note Vital Signs Vital Signs: Temp Pulse Resp BP Pulse Ox 36.8 C 108 H 18 135/82 97 09/25/18 03:10 09/25/18 03:10 09/25/18 06:00 09/25/18 03:10 09/25/18 06:00 Pain Intensity Bilateral Abdomen: Pain Intensity: 4 Notes Mental Status: alert / awake / arousable Nausea / Vomiting: adequately controlled Pain: adequately controlled Airway Patency, RR, SpO2: stable & adequate BP & HR: stable & adequate Hydration State: stable & adequate Neuraxial Anesthesia: was administered and sensory block is resolving Anesthetic Complications: no major complications apparent Epidural: Removed without complications and With tip intact
--- NOTE | 2018-09-25 07:38 | Anesthesiology Progress Note ---
Date of Service September 25, 2018 Anesthesia Post Procedure Vital Signs Vital Signs: Temp Pulse Pulse Pulse Resp BP BP 09/25/18 06:00 18 09/25/18 05:00 18 09/25/18 04:25 18 09/25/18 03:10 36.8 C 108 H 18 135/82 09/25/18 02:37 18 09/25/18 01:00 18 09/25/18 00:05 36.4 C L 118 H 18 125/84 09/24/18 23:05 36.4 C L 110 H 18 09/24/18 23:02 111 H 09/24/18 23:00 36.4 C L 110 H 20 142/77 H 09/24/18 22:57 108 H 09/24/18 22:52 111 H 09/24/18 22:47 106 H 09/24/18 22:42 109 H 09/24/18 22:37 107 H 09/24/18 22:32 103 H 09/24/18 22:31 108 H 145/70 H 09/24/18 22:30 106 H 18 09/24/18 22:27 103 H 09/24/18 22:22 107 H 09/24/18 22:17 106 H 09/24/18 22:12 104 H 09/24/18 22:07 105 H 09/24/18 22:02 109 H 09/24/18 22:00 106 H 20 136/63 09/24/18 21:57 108 H 09/24/18 21:52 113 H 09/24/18 21:51 111 H 130/83 09/24/18 21:50 18 09/24/18 21:47 109 H 09/24/18 21:42 112 H 09/24/18 21:40 107 H 18 119/56 L 09/24/18 21:37 105 H 09/24/18 21:32 108 H 09/24/18 21:30 109 H 16 116/53 L 09/24/18 21:27 112 H 09/24/18 21:22 109 H 09/24/18 21:20 110 H 18 113/57 L 09/24/18 21:17 108 H 09/24/18 21:12 103 H 09/24/18 21:11 105 H 18 119/57 L 09/24/18 21:10 16 09/24/18 21:07 110 H 09/24/18 21:03 107 H 09/24/18 21:02 107 H 09/24/18 21:00 37.2 C 18 09/24/18 20:58 110 H 16 131/58 L 09/24/18 20:57 108 H 09/24/18 19:48 128 H 147/84 H 09/24/18 19:47 133 H 174/94 H 09/24/18 19:43 132 H 09/24/18 19:38 131 H 158/94 H 09/24/18 19:33 132 H 09/24/18 19:28 134 H 09/24/18 19:23 136 H 152/96 H 09/24/18 19:18 130 H 09/24/18 19:13 132 H 09/24/18 19:08 129 H 171/96 H 09/24/18 19:03 119 H 09/24/18 19:00 37.0 C 20 09/24/18 18:58 119 H 09/24/18 18:53 121 H 127/74 09/24/18 18:48 112 H 09/24/18 18:43 111 H 09/24/18 18:38 36.9 C 111 H 20 09/24/18 18:37 114 H 177/82 H 09/24/18 18:33 112 H 09/24/18 18:28 99 H 09/24/18 18:23 107 H 144/79 H 09/24/18 18:18 99 H 20 09/24/18 18:13 98 H 09/24/18 18:08 106 H 09/24/18 18:07 113 H 149/83 H 09/24/18 18:03 97 H 09/24/18 17:58 108 H 09/24/18 17:54 108 H 139/81 09/24/18 17:53 110 H 09/24/18 17:48 108 H 09/24/18 17:45 36.9 C 20 09/24/18 17:43 106 H 09/24/18 17:38 109 H 09/24/18 17:37 109 H 134/60 09/24/18 17:33 105 H 09/24/18 17:28 108 H 09/24/18 17:23 112 H 136/64 09/24/18 17:18 114 H 09/24/18 17:13 114 H 20 09/24/18 17:08 113 H 09/24/18 17:06 111 H 129/63 09/24/18 17:03 113 H 09/24/18 17:01 118 H 138/65 09/24/18 16:58 111 H 09/24/18 16:57 108 H 20 137/64 09/24/18 16:53 110 H 09/24/18 16:52 110 H 132/60 09/24/18 16:48 109 H 09/24/18 16:46 115 H 136/61 09/24/18 16:43 108 H 09/24/18 16:41 113 H 20 136/66 09/24/18 16:38 106 H 09/24/18 16:36 113 H 134/68 09/24/18 16:33 114 H 09/24/18 16:32 113 H 136/67 09/24/18 16:28 118 H 09/24/18 16:26 116 H 20 137/65 09/24/18 16:23 120 H 09/24/18 16:20 122 H 141/67 H 09/24/18 16:18 113 H 127/66 09/24/18 16:16 117 H 118/67 09/24/18 16:14 116 H 113/67 09/24/18 16:13 119 H 09/24/18 16:12 114 H 108/63 09/24/18 16:10 126 H 102/64 09/24/18 16:09 126 H 20 110/69 09/24/18 16:08 129 H 09/24/18 16:03 118 H 09/24/18 15:58 113 H 09/24/18 15:53 120 H 09/24/18 15:20 36.9 C 20 09/24/18 15:10 108 H 125/72 09/24/18 14:18 114 H 164/78 H 09/24/18 14:17 109 H 180/84 H 09/24/18 13:30 36.8 C 09/24/18 13:10 104 H 141/81 H 09/24/18 12:10 106 H 20 139/79 09/24/18 11:30 37.0 C 09/24/18 11:10 108 H 18 145/90 H 09/24/18 10:11 110 H 20 128/63 09/24/18 09:11 98 H 20 141/84 H 09/24/18 08:24 36.8 C 20 09/24/18 08:04 110 H 20 143/87 H 09/24/18 08:03 20 BP Pulse Ox 09/25/18 06:00 97 09/25/18 05:00 98 09/25/18 04:25 97 09/25/18 03:10 100 09/25/18 02:37 97 09/25/18 01:00 97 09/25/18 00:05 96 09/24/18 23:05 142/77 H 97 09/24/18 23:02 99 09/24/18 23:00 09/24/18 22:57 97 09/24/18 22:52 97 09/24/18 22:47 99 09/24/18 22:42 99 09/24/18 22:37 99 09/24/18 22:32 100 09/24/18 22:31 09/24/18 22:30 99 09/24/18 22:27 99 09/24/18 22:22 99 09/24/18 22:17 99 09/24/18 22:12 98 09/24/18 22:07 99 09/24/18 22:02 98 09/24/18 22:00 09/24/18 21:57 98 09/24/18 21:52 98 09/24/18 21:51 09/24/18 21:50 09/24/18 21:47 98 09/24/18 21:42 97 09/24/18 21:40 09/24/18 21:37 96 09/24/18 21:32 97 09/24/18 21:30 09/24/18 21:27 98 09/24/18 21:22 97 09/24/18 21:20 09/24/18 21:17 97 09/24/18 21:12 98 09/24/18 21:11 09/24/18 21:10 09/24/18 21:07 98 09/24/18 21:03 94 09/24/18 21:02 96 09/24/18 21:00 09/24/18 20:58 94 09/24/18 20:57 94 09/24/18 19:48 100 09/24/18 19:47 09/24/18 19:43 100 09/24/18 19:38 99 09/24/18 19:33 99 09/24/18 19:28 100 09/24/18 19:23 100 09/24/18 19:18 100 09/24/18 19:13 100 09/24/18 19:08 100 09/24/18 19:03 97 09/24/18 19:00 09/24/18 18:58 100 09/24/18 18:53 93 09/24/18 18:48 100 09/24/18 18:43 100 09/24/18 18:38 100 09/24/18 18:37 09/24/18 18:33 99 09/24/18 18:28 99 09/24/18 18:23 99 09/24/18 18:18 99 09/24/18 18:13 99 09/24/18 18:08 99 09/24/18 18:07 09/24/18 18:03 98 09/24/18 17:58 98 09/24/18 17:54 09/24/18 17:53 99 09/24/18 17:48 100 09/24/18 17:45 09/24/18 17:43 99 09/24/18 17:38 100 09/24/18 17:37 09/24/18 17:33 100 09/24/18 17:28 100 09/24/18 17:23 99 09/24/18 17:18 100 09/24/18 17:13 100 09/24/18 17:08 100 09/24/18 17:06 09/24/18 17:03 100 09/24/18 17:01 09/24/18 16:58 100 09/24/18 16:57 09/24/18 16:53 100 09/24/18 16:52 09/24/18 16:48 99 09/24/18 16:46 09/24/18 16:43 99 09/24/18 16:41 09/24/18 16:38 100 09/24/18 16:36 09/24/18 16:33 100 09/24/18 16:32 09/24/18 16:28 100 09/24/18 16:26 09/24/18 16:23 99 09/24/18 16:20 09/24/18 16:18 100 09/24/18 16:16 09/24/18 16:14 09/24/18 16:13 99 09/24/18 16:12 09/24/18 16:10 09/24/18 16:09 09/24/18 16:08 99 09/24/18 16:03 99 09/24/18 15:58 100 09/24/18 15:53 100 09/24/18 15:20 09/24/18 15:10 09/24/18 14:18 09/24/18 14:17 09/24/18 13:30 09/24/18 13:10 09/24/18 12:10 09/24/18 11:30 09/24/18 11:10 09/24/18 10:11 09/24/18 09:11 09/24/18 08:24 09/24/18 08:04 09/24/18 08:03 Pain Intensity Bilateral Abdomen: Pain Intensity: 4 Transfer of Care Handoff Completed per policy Notes Mental Status: alert / awake / arousable Patient Amnestic to Procedure: Yes Nausea / Vomiting: adequately controlled Pain: adequately controlled Airway Patency, RR, SpO2: stable & adequate BP & HR: stable & adequate Hydration State: stable & adequate Neuraxial Anesthesia: was administered and sensory block is resolving Anesthetic Complications: no major complications apparent Notes: Patient w/o c/o H/A;No c/o LE weakness or paresthesias;No c/o LBP.Patient is s/p C section, and has not ambulated yet.
[2018-09-25] MEDS: DOCUSATE SODIUM 100 MG CAP PO SCH ×2 (08:55→20:48)
[2018-09-25] MEDS: SIMETHICONE 80 MG CHEW PO SCH ×4 (08:56→20:48)
[2018-09-25] MEDS: FERROUS SULFATE 325 MG TAB PO SCH (08:56)
[2018-09-25] MEDS: PRENATAL VITAMIN 1 TAB PO SCH (08:57)
[2018-09-25] MEDS: LACTATED RINGER'S 1,000 ML IV SCH (10:18)
[2018-09-25] MEDS ORDERED: PROMETHAZINE HCL 25 MG in SODIUM CHLORIDE 0.9% 50 ML IV PRN (14:40)
[2018-09-25] MEDS ORDERED: MEPERIDINE HCL 50 MG/ML CARP IV PRN (14:40)
[2018-09-25] MEDS ORDERED: DiphenhydrAMINE HCL 50 MG/ML VIAL IV PRN (14:40)
[2018-09-25] MEDS ORDERED: DC INTRASPINAL MORPHINE SCH (14:40)
[2018-09-25] MEDS ORDERED: KETOROLAC 30 MG/ML VIAL IV PRN (14:40)
[2018-09-25] MEDS ORDERED: ONDANSETRON INJ 2 MG/ML 2 ML VIAL IV PRN (14:40)
[2018-09-25] MEDS: OXYCODONE/ACETAMINOPHEN 5mg/325mg TAB PO PRN (18:08)
[2018-09-25] MEDS: IBUPROFEN 600 MG TAB PO PRN (18:08)
--- NOTE | 2018-09-25 20:15 | Obstetrical Progress Note ---
Date of Service September 25, 2018 Assessment & Plan (1) Fever: will montior temp for now. treat with tylenol & ibuprofen PRN will check CBC with diff now. (2) S/P : Subjective called to evaluate patient for elevated temp to 38.3 and persistent tachycardia. no localizing symptoms except for pressure in the right ear since for last 4 days & some nasal congestion. no cough or SOB. She feels a bit flushed. she received motrin & percocet about 1 hour ago. Constitutional: + as per Subjective / HPI Ear, Nose, Mouth, Throat: + as per Subjective / HPI Physical Exam Vital Signs (Past 24 Hours) Last Vital Signs Temp 98.8 F 09/25/18 15:30 Pulse 123 H 09/25/18 15:30 Resp 20 09/25/18 15:30 BP 108/64 09/25/18 15:30 Pulse Ox 98 09/25/18 15:30 ENMT external ear and nose normal, oropharynx normal (TM bilaterally appear normal) Gastrointestinal (Abdomen) normal bowel sounds, soft, nontender, no hepatosplenomegaly (appropriate incisional & fundal tenderness) Inspection/Auscultation: + abdominal surgical incision (dressing removed- dry intact no redness.) Musculoskeletal no calf tenderness or redness.
[2018-09-25 20:40] LABS: Hematocrit (blood only) 29.6 % (37-47); Hemoglobin 9.9 g/dL (12.0-16.0); Mean Corpuscular Hgb Conc 33.4 g/dL (32-36); Mean Corpuscular Volume 81.1 fL (80-100); Mean Platelet Volume 9.5 fL (7.4-10.4); Platelet Count 198 K/uL (130-400); RDW Coefficient of Variation 15.7 % (11.5-14.5); RDW Standard Deviation 44.9 fL (36.4-46.3); Red Blood Count 3.65 M/uL (4.2-5.4)
[2018-09-25 21:04] LABS: Anisocytosis Present; Basophils # (auto) 0.01 K/uL (0-0.2); Basophils % (auto) 0.1 %; Immature Granulocytes # (auto) 0.04 K/uL (0.00-0.02); Immature Granulocytes % (auto) 0.3 %; Lymphocytes # (auto) 1.59 K/uL (1.2-3.4); Lymphocytes % (auto) 13.8 %; Monocytes # (auto) 1.01 K/uL (0.11-0.59); Monocytes % (auto) 8.8 %; Neutrophils # (auto) 8.85 K/uL (1.4-6.5); Polychromasia 1+; Tear Drop Cells 1+
[2018-09-26] MEDS: IBUPROFEN 600 MG TAB PO PRN ×4 (03:56→21:05)
[2018-09-26] MEDS: OXYCODONE/ACETAMINOPHEN 5mg/325mg TAB PO PRN ×2 (03:57→08:41)
--- NOTE | 2018-09-26 07:08 | Obstetrical Progress Note ---
Date of Service September 26, 2018 Assessment & Plan (1) S/P : 28yo pod1 s/p -Vital signs WNL bp 107/74 T36.8; tmax of 38.3 overnight tachycardic since admission -CBC overnight demonstrated resolving wbc 10.2->9.9 -be on the lookout for development of si/sx of infection -Tachycardia may represent the patient baseline HR vs. anxiety -Continue to monitor vitals -Hemoglobin was 12.6 on admission. no si/sx of anemia. -Pt is doing clinically well -Continue to encourage ambulation as tolerated, Monitor and control pain with Motrin, toradol, oxycodone q4h prn. -Advanced diet to reg ob continue as tolerated -plan is to breast feed -routine post op care -itchiness resolving with benadryl Supervising Physician Co-Signing Physician Notes Resident Physician Supervision Note: I interviewed and examined the patient. Discussed with Dr. Kevin Young and agree with findings and plan as documented in the note. Any exceptions or clarifications are listed here: [None] Documented By: Manda Garcia MD, FACOG Subjective Patient laying in bed this morning with sleeping i the chair across the room. Patient reports sleeping better last night after sending baby to the nursery. Pt was concerned about her fever and tachycardia. She denies shaking chills, cough, congestion, shortness of breath, other si/sx of acute infectious process. Pt does endorse significant anxiety specifically related to the this being her first hospitalization and surgical site/wound healing. I had a lengthy conversation with her answering all questions and reassuring she will heal appropriately. Pt reports yeni-incisional pain that is appropriate for her stage of recovery. Patient is tolerating her diet, ambulating, passing gas and voiding, still no bm. Reports moderate lochia. Denies H/A, chest pain, palpitations and uti syx. Answered all questions, no concerns at present, pain is well controlled Physical Exam Physical Exam: Constitutional: WD/WN, vitals as above no acute distress Eyes: normal visual key by confrontation Neck: normal visual inspection Respiratory: normal respiratory effort, lungs clear to auscultation Cardiovascular: rate~90 regular rhythm, no murmur, no edema Heart Sounds: normal S1 and normal S2 Extremities: no calf tenderness Gastrointestinal (Abdomen): Uterus firm and below the umbilicus, Surgical site is clean dry and intact, negative erythema, Results & Data Vital Signs (Past 12 Hours) Vital Signs Temp Pulse Resp BP Pulse Ox 09/26/18 03:05 36.6 C 108 H 18 107/74 99 09/25/18 23:20 36.8 C 111 H 18 100/60 98 09/25/18 21:00 36.8 C 09/25/18 19:30 38.3 C H 132 H 18 108/71 98 Laboratory Results 09/25/18 09/25/18 Range/Units 20:20 06:54 WBC 11.50 H 12.56 H (4.8-10.8) K/uL RBC 3.65 L 3.66 L (4.2-5.4) M/uL Hgb 9.9 L 10.2 L (12.0-16.0) g/dL Hct 29.6 L 29.4 L (37-47) % MCV 81.1 80.3 (80-100) fL MCH 27.1 27.9 (25-34) pg MCHC 33.4 34.7 (32-36) g/dL RDW Std Deviation 44.9 45.4 (36.4-46.3) fL RDW Coeff of Brian 15.7 H 15.6 H (11.5-14.5) % Plt Count 198 160 (130-400) K/uL MPV 9.5 9.5 (7.4-10.4) fL Immature Gran % (Auto) 0.3 0.3 % Neut % (Auto) 77.0 76.2 % Lymph % (Auto) 13.8 14.1 % [place] % (Auto) 8.8 9.3 % Eos % (Auto) 0.0 0.0 % Baso % (Auto) 0.1 0.1 % Immature Gran # (Auto) 0.04 H 0.04 H (0.00-0.02) K/uL Neut # (Auto) 8.85 H 9.57 H (1.4-6.5) K/uL Lymph # (Auto) 1.59 1.77 (1.2-3.4) K/uL [place]ades # (Auto) 1.01 H 1.17 H (0.11-0.59) K/uL Eos # (Auto) 0.00 0.00 (0-0.5) K/uL Baso # (Auto) 0.01 0.01 (0-0.2) K/uL Polychromasia 1+ Anisocytosis Present Tear Drop Cells 1+ Medications Administered Current Inpatient Medications Benzocaine (Dermoplast Pain Relieving [place]) 1 appln EXT UD PRN PRN Reason: use on skin as needed Stop: 10/24/18 21:03 Cocaine HCl (Supercream 0.870%) 1 gm EXT UD PRN PRN Reason: hemmorrhoidal inflammation Stop: 10/08/18 21:03 Diphenhydramine HCl (Benadryl) 25 mg IV QID PRN PRN Reason: Itching Stop: 10/25/18 14:39 Diphenhydramine HCl (Benadryl Capsule) 25 mg PO QID PRN PRN Reason: Itching Stop: 10/25/18 14:39 Docusate Sodium (Colace) 100 mg PO BID [facility] Stop: 10/24/18 21:44 Last Admin: 09/25/18 20:48 Dose: 100 mg Documented by: Ferrous Sulfate (Feosol) 325 mg PO QAM [facility] Stop: 10/25/18 08:59 Last Admin: 09/25/18 08:56 Dose: 325 mg Documented by: Hydrocortisone (Anusol Hc) 25 mg [place] BID PRN PRN Reason: Hemorrhoids Stop: 10/24/18 21:03 Oxytocin (Pitocin) 30 units in 500 mls @ 333.333 mls/hr IV .Q1H30M PRN; Protocol PRN Reason: Bleeding Control Stop: 10/24/18 03:29 Last Titration: 09/25/18 02:35 Dose: Infused Documented by: Promethazine HCl 25 mg/ Sodium (Chloride) 51 mls @ 204 mls/hr IV Q4H PRN PRN Reason: Nausea And Vomiting Stop: 10/25/18 14:39 Lactated Ringer's (Lr) 1,000 mls @ 125 mls/hr IV .Q8H [facility] Stop: 10/24/18 21:03 Last Infusion: 09/25/18 14:19 Dose: Infused Documented by: Oxytocin (Pitocin) 30 units in 500 mls @ 500 mls/hr IV .Q1H PRN; Protocol PRN Reason: Bleeding Control Stop: 10/24/18 21:05 Oxytocin (Pitocin) 30 units in 500 mls @ 0 mls/hr IV .Q0M [facility]; Protocol Stop: 10/24/18 21:14 Ibuprofen (Motrin) 600 mg PO Q4H PRN PRN Reason: Pain Stop: 10/24/18 21:03 Last Admin: 09/26/18 03:56 Dose: 600 mg Documented by: Ketorolac Tromethamine (Toradol) 30 mg IV Q6H PRN PRN Reason: Pain Stop: 09/30/18 14:39 Magnesium Hydroxide (Milk Of Magnesia) 30 ml PO HS PRN PRN Reason: Constipation Stop: 10/24/18 21:03 Meperidine HCl (Demerol) 50 - 75 mg IV Q4H PRN PRN Reason: Pain Stop: 10/09/18 14:39 Ondansetron HCl (Zofran) 4 mg IV Q4H PRN PRN Reason: Nausea And Vomiting Stop: 10/25/18 14:39 Oxycodone/Acetaminophen (Percocet 5mg/325mg) 1 - 2 tab PO Q4H PRN PRN Reason: Pain Stop: 10/09/18 14:39 Last Admin: 09/26/18 03:57 Dose: 1 tab Documented by: Garretat Multivit/[place]/Iron/Folic Ac ( Vitamin) 1 tab PO QAM [facility] Stop: 10/25/18 08:59 Last Admin: 09/25/18 08:57 Dose: 1 tab Documented by: Sennosides (Senokot) 17.2 mg PO HS PRN PRN Reason: Constipation Stop: 10/24/18 21:03 Simethicone (Mylicon) 80 mg PO QID [facility] Stop: 10/24/18 21:44 Last Admin: 09/25/18 20:48 Dose: 80 mg Documented by: Resident Activity Tracking Resident Involvement: Resident Care Provided Care Provided: Adult Hospital Medicine
[2018-09-26 07:14] LABS: Hematocrit (blood only) 28.1 % (37-47); Hemoglobin 9.5 g/dL (12.0-16.0)
[2018-09-26] MEDS: DOCUSATE SODIUM 100 MG CAP PO SCH ×2 (08:40→21:05)
[2018-09-26] MEDS: PRENATAL VITAMIN 1 TAB PO SCH (08:40)
[2018-09-26] MEDS: FERROUS SULFATE 325 MG TAB PO SCH (08:41)
[2018-09-26] MEDS: SIMETHICONE 80 MG CHEW PO SCH ×4 (10:58→21:05)
[2018-09-27] MEDS: IBUPROFEN 600 MG TAB PO PRN ×4 (01:08→15:13)
--- NOTE | 2018-09-27 07:13 | Obstetrical Progress Note ---
Date of Service September 27, 2018 Assessment & Plan (1) S/P : 28yo pod1 s/p -Vital signs WNL bp 107/74 T36.8; fevers resolved tachycardic since admission likely represents her baseline -Hemoglobin was 12.6 on admission. no si/sx of anemia. -Pt is doing clinically well -Continue to encourage ambulation as tolerated, Monitor and control pain with Motrin prn, --Continue diet as tolerated. -incision Clean Dry and intact -Continue to support and encourage breast feeding -no more n/v tolerating diet -Counseled patient on discharge instructions including Vaginal bleeding, fevers, followup, lifting restrictions, breast feeding, vitamins, and nothing in the vagina for 6 weeks. Pt was agreeable -Plan for d/c today Supervising Physician Co-Signing Physician Notes Resident Physician Supervision Note: I was present with Dr. Yuong during the history and exam. I discussed the case with the resident and agree with the findings and plan as documented in the note. Any exceptions or clarifications are listed here: Patient remains afebrile, no localizing source of infection. Patient requesting d/c. Rx/instructions given, f/u 10/04 for staple removal. Documented By: Drew Oswald Jr, MD, FACOG Subjective Pt did well overnight, all concerns resolved, taking percocet as it made her loopy. Patient is tolerating her diet, ambulating, passing gas and voiding, still no bm. Reports moderate lochia. Denies H/A, chest pain, palpitations and uti syx. Answered all questions, no concerns at present, pain is well con trolled Physical Exam Physical Exam: Constitutional: WD/WN, vitals as above no acute distress Eyes: normal visual key by confrontation Neck: normal visual inspection Respiratory: normal respiratory effort, lungs clear to auscultation Cardiovascular: RRR, no murmur, no edema Heart Sounds: normal S1 and normal S2 Extremities: no calf tenderness Gastrointestinal (Abdomen): Uterus firm and below the umbilicus surgical site clean dry and intact Results & Data Vital Signs (Past 12 Hours) Vital Signs Temp Pulse Resp BP Pulse Ox 09/26/18 23:35 36.9 C 104 H 18 106/72 97 09/26/18 21:25 36.8 C 114 H 18 115/78 98 Laboratory Results 09/26/18 Range/Units 06:41 Hgb 9.5 L (12.0-16.0) g/dL Hct 28.1 L (37-47) % Medications Administered Current Inpatient Medications Benzocaine (Dermoplast Pain Relieving [place]) 1 appln EXT UD PRN PRN Reason: use on skin as needed Stop: 10/24/18 21:03 Cocaine HCl (Supercream 0.870%) 1 gm EXT UD PRN PRN Reason: hemmorrhoidal inflammation Stop: 10/08/18 21:03 Diphenhydramine HCl (Benadryl) 25 mg IV QID PRN PRN Reason: Itching Stop: 10/25/18 14:39 Diphenhydramine HCl (Benadryl Capsule) 25 mg PO QID PRN PRN Reason: Itching Stop: 10/25/18 14:39 Docusate Sodium (Colace) 100 mg PO BID [facility] Stop: 10/24/18 21:44 Last Admin: 09/26/18 21:05 Dose: 100 mg Documented by: Ferrous Sulfate (Feosol) 325 mg PO QAM [facility] Stop: 10/25/18 08:59 Last Admin: 09/26/18 08:41 Dose: 325 mg Documented by: Hydrocortisone (Anusol Hc) 25 mg [place] BID PRN PRN Reason: Hemorrhoids Stop: 10/24/18 21:03 Oxytocin (Pitocin) 30 units in 500 mls @ 333.333 mls/hr IV .Q1H30M PRN; Protocol PRN Reason: Bleeding Control Stop: 10/24/18 03:29 Last Titration: 09/25/18 02:35 Dose: Infused Documented by: Promethazine HCl 25 mg/ Sodium (Chloride) 51 mls @ 204 mls/hr IV Q4H PRN PRN Reason: Nausea And Vomiting Stop: 10/25/18 14:39 Lactated Ringer's (Lr) 1,000 mls @ 125 mls/hr IV .Q8H [facility] Stop: 10/24/18 21:03 Last Infusion: 09/25/18 14:19 Dose: Infused Documented by: Oxytocin (Pitocin) 30 units in 500 mls @ 500 mls/hr IV .Q1H PRN; Protocol PRN Reason: Bleeding Control Stop: 10/24/18 21:05 Oxytocin (Pitocin) 30 units in 500 mls @ 0 mls/hr IV .Q0M [facility]; Protocol Stop: 10/24/18 21:14 Ibuprofen (Motrin) 600 mg PO Q4H PRN PRN Reason: Pain Stop: 10/24/18 21:03 Last Admin: 09/27/18 05:36 Dose: 600 mg Documented by: Ketorolac Tromethamine (Toradol) 30 mg IV Q6H PRN PRN Reason: Pain Stop: 09/30/18 14:39 Magnesium Hydroxide (Milk Of Magnesia) 30 ml PO HS PRN PRN Reason: Constipation Stop: 10/24/18 21:03 Meperidine HCl (Demerol) 50 - 75 mg IV Q4H PRN PRN Reason: Pain Stop: 10/09/18 14:39 Ondansetron HCl (Zofran) 4 mg IV Q4H PRN PRN Reason: Nausea And Vomiting Stop: 10/25/18 14:39 Oxycodone/Acetaminophen (Percocet 5mg/325mg) 1 - 2 tab PO Q4H PRN PRN Reason: Pain Stop: 10/09/18 14:39 Last Admin: 09/26/18 08:41 Dose: 1 tab Documented by: Prenat Multivit/Gis Specialist/Iron/Folic Ac ( Vitamin) 1 tab PO QAM [facility] Stop: 10/25/18 08:59 Last Admin: 09/26/18 08:40 Dose: 1 tab Documented by: Sennosides (Senokot) 17.2 mg PO HS PRN PRN Reason: Constipation Stop: 10/24/18 21:03 Simethicone (Mylicon) 80 mg PO QID [facility] Stop: 10/24/18 21:44 Last Admin: 09/26/18 21:05 Dose: 80 mg Documented by: Resident Activity Tracking Resident Involvement: Resident Care Provided Care Provided: Adult Hospital Medicine
[2018-09-27] MEDS: DOCUSATE SODIUM 100 MG CAP PO SCH (07:52)
[2018-09-27] MEDS: SIMETHICONE 80 MG CHEW PO SCH ×2 (07:52→14:04)
[2018-09-27] MEDS: FERROUS SULFATE 325 MG TAB PO SCH (07:53)
[2018-09-27] MEDS: PRENATAL VITAMIN 1 TAB PO SCH (07:54)
--- NOTE | 2018-09-30 07:20 | Discharge Summary ---
Date of Service September 30, 2018 Discharge Data Consultations 09/24/18 03:30 Consult Anesthesiology Stat Procedures Performed Operation Date: 09/24/18 19:30 Actual Procedures p Primary Section with a low transerve incision for the of a viable male child.(Bilateral) - Kathleen Amaya MD Hospital Course (1) Post term over 40 weeks: Patient admitted for post dates IOL, experienced FTP and underwent uncomplicated primary LTCS. Discharged to home at the usual timeframe with plan for staple removal on POD#10 i office.
== END 2018-09-27 16:30 | disposition home or self-care (01) | DRG 787 ==
LOC: OPB 02:20 → 4S1 02:28 → 4S2 23:10

== ENCOUNTER 2024-03-17 07:40 | Inpatient (IN) ==
--- NOTE | 2024-03-11 15:21 | Anesthesiology Consultation ---
Date of Service March 11, 2024 Assessment & Plan (1) Encounter for pre-operative examination: - Per staffing and scheduling coordinator on 03/11/24: No known infectious disease contacts, current infectious disease symptoms in past 10 days or COVID positive test result in the past 30 days. Chart Review Chart Review: entry level accounting clerk initiated History Surgery Operation Date: 03/17/24 09:05 Proposed Procedures p Section (Delivery of Baby Through Abdominal Incision) - Kathleen Amaya MD Height/Weight Height: 5 ft 4 in Weight: 117.934 kg Allergies Allergy/AdvReac Type Severity Reaction Status Date / Time latex Allergy Mild Rash Verified 03/11/24 14:43 Medications Home Medications Medication Instructions Recorded Confirmed Last Taken prenat.vits,sherrie,[id number] 1 tab PO HS 10/18/22 03/11/24 Unknown aspirin 81 mg chewable tablet 81 mg PO HS 10/10/23 03/11/24 Unknown calcium carbonate (Tums) 200 mg PO DAILY PRN Heartburn 12/13/23 03/11/24 Unknown cholecalciferol (vitamin D3) 25 25 mcg PO HS 12/13/23 03/11/24 Unknown mcg (1,000 unit) capsule albuterol sulfate 90 mcg/actuation 1 inh inhalation UD PRN Cough 03/11/24 03/11/24 Unknown aerosol inhaler ferrous sulfate 27 mg iron tablet 27 mg PO HS 03/11/24 03/11/24 Unknown Past Medical History Medical History (Updated 03/11/24 @ 15:20 by Elvira Gill PA-C) GERD (gastroesophageal reflux disease) Mild heartburn History of anesthesia reaction itchy all over after surgery, td. 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 History of chicken pox History of depression History of postoperative nausea and vomiting n/v during Sleep apnea used a cpap in the past, but no longer uses while currently preganant Past Family History Family History Grandmother (Maternal) Diabetes Uterine cancer Breast cancer Grandmother (Paternal) Diabetes Dementia Father Hypertension Grandfather (Maternal) Stroke Grandfather (Paternal) Diabetes Aunt Breast cancer Other Alzheimer disease Denies family history of Ovarian cancer Lung cancer Colorectal cancer Past Surgical History Surgical History S/P section (2019) Social History Smoking Status: Never smoker Do You Dip or Chew Tobacco: No Hx Alcohol Use: Yes alcohol intake frequency: holidays/special occasions only Alcohol Intake Frequency Comment: not during Hx Substance Use: No
[2024-03-17] MEDS ORDERED: LACTATED RINGER'S 1,000 ML IV SCH ×2 (09:00→12:31)
[2024-03-17 09:04] LABS: Hematocrit (blood only) 37.9 % (37.0-47.0); Hemoglobin 13.1 g/dl (12.0-16.0); Mean Corpuscular Hgb Conc 34.6 g/dL (32.0-36.0); Mean Platelet Volume 9.7 fL (9.4-12.4); Platelet Count 253 K/uL (130-400); RDW Coefficient of Variation 14.9 % (11.5-14.5); RDW Standard Deviation 45.5 fL (36.4-46.3); Red Blood Count 4.51 M/uL (4.20-5.40); White Blood Count 10.64 K/ul (4.8-10.8)
[2024-03-17] MEDS: ACETAMINOPHEN 500 MG TAB PO SCH (09:25)
[2024-03-17] MEDS ORDERED: DEXAMETHASONE SOD INJ 4 MG/ML VIAL ONE (09:37)
[2024-03-17] MEDS ORDERED: OXYTOCIN 10 UNITS/ML VIAL ONE (09:37)
[2024-03-17] MEDS ORDERED: ONDANSETRON INJ 2 MG/ML 2 ML VIAL ONE (09:37)
[2024-03-17] MEDS ORDERED: fentaNYL citrate PF 100 MCG/2 ML VIAL ONE (09:38)
[2024-03-17] MEDS ORDERED: MoRPHine SULFATE PF 1 MG/ML 10 ML AMP/VIAL ONE (09:38)
--- NOTE | 2024-03-17 09:41 | History & Physical Bridge Note ---
Date of Service March 17, 2024 History & Physical Bridge Note I have examined the patient, reviewed the History & Physical and in the interval since the performance of the History & Physical I have noted the following changes of clinical significance: no changes noted
[2024-03-17] MEDS: LACTATED RINGER'S 1,000 ML IV SCH (09:51)
[2024-03-17] MEDS ORDERED: HYDROmorphone INJ 0.5 MG/0.5 ML SYR IV PRN (09:53)
[2024-03-17] MEDS ORDERED: ONDANSETRON INJ 2 MG/ML 2 ML VIAL IV PRN (09:53)
[2024-03-17] MEDS ORDERED: ePHEDrine sulfate 50 MG/ML AMP IV PRN (09:53)
[2024-03-17] MEDS ORDERED: NALBUPHINE HCL INJ 10 MG/ML AMP IV PRN (09:53)
[2024-03-17] MEDS ORDERED: NALOXONE HCL 0.4 MG/1 ML VIAL/CARP IV PRN (09:53)
[2024-03-17] MEDS ORDERED: MoRPHine SULFATE 2 MG/ML CARP IV PRN (09:53)
[2024-03-17] MEDS ORDERED: MoRPHine SULFATE PF 1 MG/ML 10 ML AMP/VIAL INT SPINAL ONE (09:53)
[2024-03-17] MEDS ORDERED: NALOXONE HCL 0.08 MG in SYRINGE 1.8 ML IV PRN (09:53)
[2024-03-17] MEDS ORDERED: NALOXONE HCL 1 MG in SODIUM CHLORIDE 0.9% 1,000 ML IV PRN (09:53)
[2024-03-17] MEDS ORDERED: DC INTRASPINAL MORPHINE SCH (10:00)
[2024-03-17] MEDS ORDERED: NO NARCOTICS OR SEDATIVES SCH (10:00)
[2024-03-17] MEDS: CITRIC ACID/SODIUM CITRATE 15 ML UDC PO SCH (10:32)
[2024-03-17] MEDS: ceFAZolin 2000MG 2,000 MG/15 ML SYR IV SCH (10:33)
[2024-03-17] MEDS ORDERED: ePHEDrine sulfate 50 MG/5 ML SYR ONE (11:20)
[2024-03-17] MEDS ORDERED: SODIUM CHLORIDE 0.9% 100 ML IV PRN (11:36)
--- NOTE | 2024-03-17 12:03 | Operative Report ---
Post Operative Report Pre & Post Diagnosis Operation Date: 03/17/24 09:40 at term Prior section Declines /TOLAC Desires sterilization I identified the patient and participated in the time-out.: Yes Procedure Operation Date: 03/17/24 09:40 Repeat LTCS, bilateral salpingectomy Surgeon Kathleen Amaya MD Top Installer [place] Quantitative Blood Loss (QBL) 426 Findings Consistent with Post-Op Diagnosis Specimens Placenta, Cord blood Anesthesia Type Spinal Complications none Disposition Accompanied Patient To Recovery: Yes Disposition: L&D Description of Procedure The patient was placed operating table in the supine position with a leftward tilt. She was prepped and draped in standard sterile fashion. The anesthetic was tested and found to be adequate. A time-out was held, identifying correct patient, procedure, positioning and preoperative antibiotics. There were no concerns. A Pfannenstiel skin incision was made with a knife and taken down to the underlying layer of fascia. The fascia was incised in the midline with the knife and taken out laterally with scissors. The superior edge of the fascial incision was grasped, elevated and dissected off the underlying rectus both superiorly and inferiorly. The muscles were bluntly in the midline. The peritoneum was entered bluntly. The incision was then stretched. The Jaya retractor was placed. The vesicouterine peritoneum was identified, entered with scissors and taken out laterally with scissors. The bladder flap was created digitally. A hysterotomy incision was created transversely in the lower uterine segment, final entry being accomplished in a blunt manner with the weight count operator's fingers. Clear amniotic fluid was encountered. The weight count operator's hand was used to elevate the head to the hysterotomy. The head was delivered using mild fundal pressure and a Kiwi cup, and the shoulders and body followed without difficulty. The cord was clamped and cut and the infant was then handed off to the awaiting recreation establishment manager. Cord blood was obtained. The placenta was Manually extracted. The uterus was exteriorized and cleared of all clot and debris with moistened laparotomy sponges. The hysterotomy incision was repaired in two layers, the first in a running locked layer, the second in an imbricating layer. The ovaries and tubes were seen to be normal bilaterally. Tubes were each elevated using Alexis clamps and excised using electrocautery, after verbally confirming patient consent to proceed with sterilization. The uterus was gently replaced in the abdomen, and the gutters were cleared of clot and debris. A final inspection of the hysterotomy revealed good hemostasis. The Jaya was removed. The rectus muscles were allowed to reapproximate naturally. The fascia was then reapproximated with 1 Vicryl in a running nonlocked manner. The fascia was examined and found to be free of defect following closure. The subcutaneous tissue was copiously irrigated and reapproximated with 0-chromic, then the skin edges were closed with 4-0 monocryl in a subcuticular fashion. A dermabond dressing was applied. The kc was found to be draining clear yellow urine at completion of the procedure. I attest to the content of the Intraoperative Record and any orders documented therein. Any exceptions are noted below. I attest to the content of the Intraoperative Record and any orders documented therein. Any exceptions are noted below. OB Procedure Charges [id number] Add on Tubal for C/S
[2024-03-17] MEDS ORDERED: BENZOCAINE 20% SPRY 85 APPLN/85 GM CAN EXT PRN (12:31)
[2024-03-17] MEDS ORDERED: SENNA 8.6 MG TAB PO PRN (12:31)
[2024-03-17] MEDS ORDERED: diphenhydrAMINE Capsule 25 MG CAP PO PRN (12:31)
[2024-03-17] MEDS ORDERED: HYDROCORTISONE ACETATE 25 MG SUPP PR PRN (12:31)
[2024-03-17] MEDS ORDERED: PROMETHAZINE 12.5 MG/50.5 ML BAG IV PRN (12:31)
[2024-03-17] MEDS ORDERED: CALCIUM CARBONATE 500 MG CHEWABLE TAB PO PRN (12:31)
[2024-03-17] MEDS ORDERED: MAGNESIUM HYDROXIDE SUSP 30 ML UDC PO PRN (12:31)
[2024-03-17] MEDS: DIPHTHER/TETAN/PERTUS Vaccine (Tdap, Adol/Adult) 0.5mL IM ONE (12:40)
[2024-03-17] MEDS: KETOROLAC 30 MG/ML VIAL IV SCH (12:41)
--- NOTE | 2024-03-17 12:51 | Anesthesiology Progress Note ---
Date of Service March 17, 2024 Anesthesia Post Procedure Vital Signs Vital Signs: Temp Pulse Resp BP Pulse Ox O2 Del Method 03/17/24 12:45 93 03/17/24 12:45 108 H 03/17/24 12:45 108 H 99 03/17/24 12:40 107 H 100 03/17/24 12:37 107 H 115/57 L 03/17/24 12:35 90 03/17/24 12:35 97 H 03/17/24 12:35 98 H 100 03/17/24 12:30 100 H 100 03/17/24 12:27 93 H 110/53 L 03/17/24 12:25 92 H 100 03/17/24 12:20 36.5 C 92 H 18 100 03/17/24 12:20 96 H 100 03/17/24 12:17 97 H 115/50 L 03/17/24 12:15 104 H 100 03/17/24 12:14 96 H 86 L 03/17/24 12:10 36.4 C L 92 H 18 100 03/17/24 12:10 96 H 97 03/17/24 12:08 97 H 88 L 03/17/24 12:07 88 90/55 L 03/17/24 12:05 95 H 99 03/17/24 12:00 96 H 100 03/17/24 12:00 36.7 C 16 03/17/24 12:00 93 H 100 03/17/24 11:57 93 H 92/46 L 03/17/24 09:30 18 03/17/24 09:30 18 03/17/24 09:03 96 H 131/73 03/17/24 08:07 36.9 C 16 Room Air 03/17/24 07:50 36.9 C 104 H 16 134/92 Pain Intensity Abdomen: Pain Intensity: 0 Transfer of Care Handoff Completed per policy Notes Mental Status: alert / awake / arousable and participated in evaluation Patient Amnestic to Procedure: Yes Nausea / Vomiting: adequately controlled Pain: adequately controlled Airway Patency, RR, SpO2: stable & adequate BP & HR: stable & adequate Hydration State: stable & adequate Neuraxial Anesthesia: was administered and sensory block is resolving Anesthetic Complications: no major complications apparent and Pt Satisfied with anesthetic care
[2024-03-17] MEDS: diphenhydrAMINE 50 MG/ML VIAL IV PRN (13:11)
[2024-03-17] MEDS: SIMETHICONE 80 MG CHEW PO SCH (13:11)
[2024-03-17] MEDS: KETOROLAC 30 MG/ML VIAL ONE (13:28)
[2024-03-17] MEDS: OXYTOCIN 20 UNITS/1002ML LR IV ONE (13:48)
[2024-03-17] MEDS: ACETAMINOPHEN 325 MG TAB PO SCH (17:45)
[2024-03-17] MEDS: OXYTOCIN 30 UNITS/LR 1,003 ML IV SCH (17:47)
[2024-03-17] MEDS: DOCUSATE SODIUM 100 MG CAP PO SCH (19:54)
[2024-03-18] MEDS ORDERED: diphenhydrAMINE 50 MG/ML VIAL IV PRN (03:54)
[2024-03-18] MEDS ORDERED: HYDROmorphone INJ 0.5 MG/0.5 ML SYR IV PRN (03:54)
[2024-03-18] MEDS ORDERED: oxyCODONE HCL IR 5 MG TAB (IMMEDIATE RELEASE) PO PRN (03:54)
[2024-03-18] MEDS ORDERED: ONDANSETRON INJ 2 MG/ML 2 ML VIAL IV PRN (03:54)
[2024-03-18] MEDS ORDERED: CITRIC ACID/SODIUM CITRATE 15 ML UDC PO SCH (06:00)
[2024-03-18] MEDS: PRENATAL VITAMIN 1 TAB PO SCH (08:11)
[2024-03-18] MEDS: FERROUS SULFATE 325 MG TAB PO SCH (08:11)
[2024-03-18 08:25] LABS: Basophils # (auto) 0.03 K/uL (0.00-0.20); Basophils % (auto) 0.3 %; Eosinophils # (auto) 0.02 K/uL (0.00-0.50); Eosinophils % (auto) 0.2 %; Hematocrit (blood only) 30.8 % (37.0-47.0); Hemoglobin 10.4 g/dl (12.0-16.0); Immature Granulocytes # (auto) 0.06 K/uL (0.01-0.20); Immature Granulocytes % (auto) 0.6 %; Lymphocytes # (auto) 2.88 K/uL (1.20-3.40); Mean Corpuscular Hemoglobin 28.5 pg (25.0-34.0); Mean Corpuscular Hgb Conc 33.8 g/dL (32.0-36.0); Mean Corpuscular Volume 84.4 fL (80.0-100.0); Mean Platelet Volume 9.9 fL (9.4-12.4); Monocytes % (auto) 9.1 %; Neutrophils # (auto) 6.03 K/uL (1.40-6.50); Neutrophils % (auto) 60.8 %; Platelet Count 200 K/uL (130-400); RDW Coefficient of Variation 14.9 % (11.5-14.5); RDW Standard Deviation 45.7 fL (36.4-46.3); Red Blood Count 3.65 M/uL (4.20-5.40); White Blood Count 9.92 K/ul (4.8-10.8)
--- NOTE | 2024-03-18 10:03 | Obstetrical Progress Note ---
Date of Service March 18, 2024 Assessment & Plan (1) Encounter for care and examination after delivery: satisfactory post-op/ course continue current care plan Subjective Ambulation: ambulating normally Voiding: no voiding problems Passing Gas:: Yes Diet Tolerance:: regular diet Lochia:: Small Feeding Type:: breast feeding doing well- voiding without difficulty no BM yet but passing gas Review of Systems All systems reviewed & are unremarkable except as noted in HPI & below Physical Exam Constitutional WD/WN, vitals as above Gastrointestinal (Abdomen) Inspection/Auscultation: + abdominal surgical incision (dry and intact) Psychiatric A+Ox3, euthymic affect Genitourinary OB Exam Abdomen: + fundal height Fundus: + firm and + relation to umbilicus (at U) Results & Data Vital Signs (Past 12 Hours) Vital Signs Temp Pulse Resp BP Pulse Ox O2 Del Method 03/18/24 08:05 Room Air 03/18/24 08:05 98.1 F 85 18 121/81 Room Air 03/18/24 03:27 98.6 F 100 H 14 139/87 96 Room Air 03/18/24 03:25 16 96 03/18/24 02:00 14 98 03/18/24 01:00 16 94 03/18/24 00:00 14 97 03/17/24 23:00 16 95 03/17/24 23:00 97.7 F 98 H 16 127/78 95 Room Air
[2024-03-18] MEDS ORDERED: KETOROLAC 30 MG/ML VIAL IV PRN (12:04)
[2024-03-18] MEDS: IBUPROFEN 600 MG TAB PO SCH (12:47)
[2024-03-18] MEDS: bisacodyL 5 MG TABEC PO SCH (21:15)
[2024-03-19 06:37] LABS: Hematocrit (blood only) 30.8 % (37.0-47.0); Hemoglobin 10.6 g/dl (12.0-16.0)
[2024-03-19 07:17] LABS: Hematocrit (blood only) 32.2 % (37.0-47.0); Mean Corpuscular Hemoglobin 29.3 pg (25.0-34.0); Mean Corpuscular Hgb Conc 34.2 g/dL (32.0-36.0); Mean Corpuscular Volume 85.6 fL (80.0-100.0); Mean Platelet Volume 9.4 fL (9.4-12.4); Platelet Count 171 K/uL (130-400); RDW Coefficient of Variation 15.3 % (11.5-14.5); RDW Standard Deviation 47.1 fL (36.4-46.3); Red Blood Count 3.76 M/uL (4.20-5.40); White Blood Count 9.29 K/ul (4.8-10.8)
[2024-03-19 07:25] LABS: BUN Creatinine Ratio 19.2 (10-20); Bilirubin,Total 0.3 mg/dl (0.2-1.0); Creatinine Clr Calc Pharmacy 198.2 ml/min; Potassium 3.9 mmol/L (3.5-5.1)
--- NOTE | 2024-03-19 07:30 | Obstetrical Progress Note ---
Date of Service March 19, 2024 Assessment & Plan (1) Encounter for care and examination after delivery: 33 yo POD 2 from rLTCS/BTL, doing well -Meeting all pp milestones, baby did lose 7oz so would like to stay tonight to help with -AB+/rubella immune/ -f/u 6 weeks for appt, continue routine care Subjective Ambulation: ambulating normally Voiding: no voiding problems Passing Gas:: Yes Diet Tolerance:: regular diet Lochia:: Small Feeding Type:: breast feeding Pain well managed with medication Review of Systems Denies fevers, chills, n/v, LIZAMA, CP, SOB Physical Exam Constitutional WD/WN, vitals as above no acute distress Respiratory normal respiratory effort, lungs clear to auscultation Cardiovascular RRR, no murmur, no edema Gastrointestinal (Abdomen) Percussion/Palpation: abdomen soft; abdomen nontender fundus firm at umbilicus and NT, incision c/d/i Musculoskeletal BLE symmetric, nonerythematous, nontender Results & Data Vital Signs (Past 12 Hours) Vital Signs Temp Pulse Resp BP 03/18/24 23:30 146/89 H 03/18/24 23:10 98.8 F 112 H 18 146/90 H 03/18/24 20:46 98.2 F 101 H 18 145/90 H
[2024-03-19] MEDS ORDERED: bisacodyL 10 MG SUPP PR PRN (12:04)
[2024-03-19] MEDS: IBUPROFEN 600 MG TAB PO PRN (16:01)
[2024-03-19] MEDS: ACETAMINOPHEN 325 MG TAB PO PRN (21:41)
--- NOTE | 2024-03-20 07:33 | Obstetrical Progress Note ---
Date of Service March 20, 2024 Assessment & Plan (1) Encounter for care and examination after delivery: (2) Elevated BP without diagnosis of hypertension: Plan stable and ready to go home. bps mild range and rec bp check on sunday. office will call with time. she also knows parameters to call and what to expect with swelling. breast pumping, rh pos, ri. discussed mood and will call with any escalating concerns. instructions reviewed. checked on pa pdmp and no issues. Day #:: 3 Subjective Ambulation: ambulating normally Voiding: no voiding problems Passing Gas:: Yes Diet Tolerance:: regular diet Lochia:: Small Feeding Type:: breast feeding (pumping) pain control good but does want small amt of narcotic sent to pharmacy in case. has anxiety and previously on prozac 40mg via pcp, does not want to start yet but predicts she will and has pcp appt in coming wks. no bleeding issues. Constitutional: + as per Subjective / HPI Physical Exam Constitutional WD/WN, vitals as above Respiratory normal respiratory effort, lungs clear to auscultation Cardiovascular Rate/Rhythm: regular rate and regular rhythm Gastrointestinal (Abdomen) Inspection/Auscultation: abdomen normal to inspection and + abdominal surgical incision (c/d/i) Percussion/Palpation: abdomen soft Fundus firm 2cm down Musculoskeletal nt calves tr edema Neurologic grossly normal Psychiatric A+Ox3, euthymic affect Results & Data Vital Signs (Past 12 Hours) Vital Signs Temp Pulse Resp BP Pulse Ox O2 Del Method 03/19/24 23:15 99.0 F 100 H 16 137/84 98 Room Air 03/19/24 19:30 99.0 F 74 17 141/92 H 97 Room Air
[2024-03-20 10:29] VITALS: PULSE 107; RESP 20; TEMP 98.1; O2SAT 99
[2024-03-20 10:40] VITALS: BP 137/88
--- NOTE | 2024-03-24 10:27 | Discharge Summary ---
Date of Service March 24, 2024 Discharge Data Consultations 03/17/24 07:47 Consult Anesthesiology Stat Procedures Performed Operation Date: 03/17/24 09:40 Actual Procedures p Section with the of a live female child at 1116. - Kathleen Amaya MD s with Bilateral Tubal Ligation - Kathleen Amaya MD Hospital Course (1) Encounter for care and examination after delivery: (2) Elevated BP without diagnosis of hypertension: Plan stable and ready to go home. bps mild range and rec bp check on sunday. office will call with time. she also knows parameters to call and what to expect with swelling. breast pumping, rh pos, ri. discussed mood and will call with any escalating concerns. instructions reviewed. checked on pa pdmp and no issues. Coding Level of Care Code None Diagnoses Encounter for care and examination after delivery Z39.2 Elevated BP without diagnosis of hypertension R03.0
== END 2024-03-20 13:25 | disposition home or self-care (01) | DRG 785 ==
LOC: 4S1 07:40 → EDSTATUS 09:05 → 4E2 14:15
PROC: M.PPTLD (2024-03-17 09:40)
DX: O99.824 Streptococcus B carrier state complicating childbirth; O34.211 Maternal care for low transverse scar from previous cesarean delivery; Z3A.39 39 weeks gestation of pregnancy; B95.1 Streptococcus, group B, as the cause of diseases classified elsewhere; Z30.2 Encounter for sterilization; O99.214 Obesity complicating childbirth; R03.0 Elevated blood-pressure reading, without diagnosis of hypertension; Z37.0 Single live birth